=== PATIENT | female | born 1970 | race Caucasian/White ===

== ENCOUNTER → 2017-11-20 | Outpatient (CLI) | payer MEDICARE ==
[~2017-11-20] MED LIST: ALBU90OI61 INH; AMPDEX10CR PO; AZIT250 PO; Cleocin HCl150 MG PO; DULO60; FENT50TP TOP; OXYC15ER PO; PRED10 PO; QUET200 PO
== END ==
LOC: LAB EV 09:00
DX: L02.91 Cutaneous abscess, unspecified (principal)
CPT/HCPCS: 87070; 87077; 87147; 87186; 87205

== ENCOUNTER → 2018-03-07 | Outpatient (CLI) | payer MEDICARE | LOC: LAB SHORT 16:15 → LAB 16:15 | PROVIDERS: Nurse Practitioner | DX: Z01.419 Encounter for gynecological examination (general) (routine) without abnormal findings (principal) | CPT/HCPCS: G0145 ==

== ENCOUNTER 2020-07-01 08:44 | Emergency (ER) | payer MEDICARE ==
[~2020-07-01] VITALS: Ht 157.5 cm; Wt 95.2 kg
[2020-07-01] MEDS ORDERED: CEPH500 PO (10:15)
== END 2020-07-01 10:28 | disposition home or self-care (01) ==
LOC: ER 08:44
DX: L03.115 Cellulitis of right lower limb (principal); F17.200 Nicotine dependence, unspecified, uncomplicated; Z88.0 Allergy status to penicillin; Z88.2 Allergy status to sulfonamides; Z88.6 Allergy status to analgesic agent; Z88.5 Allergy status to narcotic agent; Z91.013 Allergy to seafood
CPT/HCPCS: 73610; 93971; 99284-25

== ENCOUNTER 2020-07-05 16:58 | Inpatient (IN) | payer MEDICARE ==
[~2020-07-05] VITALS: Ht 157.5 cm; Wt 101.3 kg
[~2020-07-05 16:58] MED LIST changes: +CEPH500 PO
[2020-07-05 17:49] LABS: BASOPHILS ABSOLUTE AUTO 0.04 K/mm3 (0.00-0.23); BASOPHILS PERCENT AUTO 0 % (0-2); EOSINOPHILS ABSOLUTE AUTO 0.11 K/mm3 (0.00-0.68); EOSINOPHILS PERCENT AUTO 1 % (0-6); Hematocrit 32.5 % (33.0-51.0); Hemoglobin 10.1 g/dL (11.5-16.0); IMMATURE GRAN ABSOLUTE AUTO 0.09 K/mm3 (0.00-0.10); IMMATURE GRAN PERCENT AUTO 1 % (0-1); LYMPHOCYTES ABSOLUTE AUTO 1.32 K/mm3 (0.84-5.20); LYMPHOCYTES PERCENT AUTO 9 % (21-46); MONOCYTES ABSOLUTE AUTO 1.04 K/mm3 (0.16-1.47); MONOCYTES PERCENT AUTO 7 % (4-13); Mean Corpuscular HGB 26.7 pg (26.0-34.0); Mean Corpuscular HGB Conc 31.1 g/dL (31.5-36.5); Mean Corpuscular Volume 86 fL (80-100); Mean Platelet Volume 12.1 fL (9.1-12.4); NEUTROPHILS ABSOLUTE AUTO 11.62 K/mm3 (1.96-9.15); NEUTROPHILS PERCENT AUTO 82 % (41-73); Platelet Count 305 K/mm3 (150-400); RDW Coefficient Variation 17.9 % (11.7-14.2); RDW Standard Deviation 56.8 fL (35.1-46.3); Red Blood Cell Count 3.78 M/mm3 (3.80-5.20); White Blood Cell Count 14.22 K/mm3 (4.00-11.30)
[2020-07-05 18:05] LABS: Alanine Aminotransfer (ALT/SGP 30 U/L (12-78); Albumin, Blood 1.9 g/dL (3.4-5.0); Albumin/Globulin Ratio 0.4 (0.8-1.8); Alk Phos 141 U/L (50-136); Anion Gap 11 mmol/L (6-16); Aspartate Aminotrans (AST/SGOT 33 U/L (12-37); Bilirubin, Total 0.3 mg/dL (0.1-1.0); Blood Urea Nitrogen 11 mg/dL (8-24); Bun/Creatinine Ratio 18.1 (12.0-20.0); CO2, Blood 28 mmol/L (21-32); Calcium, Blood 8.2 mg/dL (8.5-10.1); Chloride, Blood 102 mmol/L (98-108); Creatinine, Blood 0.61 mg/dL (0.40-1.00); Globulin, Blood 4.7 g/dL (2.2-4.0); Glomerular Filtration Rate >60 (60-); Glucose, Blood 102 mg/dL (70-99); International Normalized Ratio 0.94; Potassium, Blood 2.9 mmol/L (3.5-5.5); Prothrombin Time Results 10.1 Sec (9.7-11.5); Sodium, Blood 141 mmol/L (136-145); Total Protein, Blood 6.6 g/dL (6.4-8.2)
[2020-07-05] MEDS ORDERED: MONDOXYNE NL100 MG PO ×2 (19:51→19:54)
--- NOTE | 2020-07-06 04:55 | NUR ---
WELL SERVICES OPERATOR SUMMARY NEW ADMIT FROM THE ED LANIIGHT. PT ADMITTED WITH RLE CELLULITIS. R LEG IS RED AND SWOLLEN FROM KNEE DOWN TO FEET. RED AREA MARKED TO TRACK PROGRESS. PT REPORTS PAIN IN AREA ESPECIALLY WITH MOVEMENT OR IF AREA IS TOUCHED. MEDICATED X1 WITH OXYCODONE PER EMAR. PT RECIEVING IV VANCOMYCIN. PT HAS BEEN USING BEDPAN RLE IS TOO PAINFUL TO WALK AT THIS TIME. PT REPORTED HAVING LOW GRADE FEVER AT HOME BUT HAS BEEN AFEBRILE SINCE ARRIVING TO FLOOR. VSS, WILL CONTINUE TO MONITOR.
[2020-07-06 05:06] LABS: BASOPHILS ABSOLUTE AUTO 0.05 K/mm3 (0.00-0.23); BASOPHILS PERCENT AUTO 0 % (0-2); EOSINOPHILS ABSOLUTE AUTO 0.11 K/mm3 (0.00-0.68); EOSINOPHILS PERCENT AUTO 1 % (0-6); Hematocrit 29.2 % (33.0-51.0); Hemoglobin 9.1 g/dL (11.5-16.0); IMMATURE GRAN ABSOLUTE AUTO 0.11 K/mm3 (0.00-0.10); IMMATURE GRAN PERCENT AUTO 1 % (0-1); LYMPHOCYTES ABSOLUTE AUTO 1.23 K/mm3 (0.84-5.20); LYMPHOCYTES PERCENT AUTO 8 % (21-46); MONOCYTES ABSOLUTE AUTO 1.51 K/mm3 (0.16-1.47); MONOCYTES PERCENT AUTO 10 % (4-13); Mean Corpuscular HGB 26.5 pg (26.0-34.0); Mean Corpuscular HGB Conc 31.2 g/dL (31.5-36.5); Mean Corpuscular Volume 85 fL (80-100); Mean Platelet Volume 12.2 fL (9.1-12.4); NEUTROPHILS ABSOLUTE AUTO 12.39 K/mm3 (1.96-9.15); NEUTROPHILS PERCENT AUTO 81 % (41-73); Platelet Count 315 K/mm3 (150-400); RDW Standard Deviation 55.9 fL (35.1-46.3); Red Blood Cell Count 3.44 M/mm3 (3.80-5.20)
[2020-07-06 05:38] LABS: Alanine Aminotransfer (ALT/SGP 29 U/L (12-78); Albumin, Blood 1.6 g/dL (3.4-5.0); Albumin/Globulin Ratio 0.4 (0.8-1.8); Alk Phos 131 U/L (50-136); Anion Gap 8 mmol/L (6-16); Aspartate Aminotrans (AST/SGOT 34 U/L (12-37); Bilirubin, Total 0.4 mg/dL (0.1-1.0); Blood Urea Nitrogen 14 mg/dL (8-24); Bun/Creatinine Ratio 22.4 (12.0-20.0); CO2, Blood 27 mmol/L (21-32); Calcium, Blood 7.6 mg/dL (8.5-10.1); Chloride, Blood 104 mmol/L (98-108); Creatinine, Blood 0.63 mg/dL (0.40-1.00); Globulin, Blood 4.4 g/dL (2.2-4.0); Glomerular Filtration Rate >60 (60-); Glucose, Blood 98 mg/dL (70-99); Potassium, Blood 3.4 mmol/L (3.5-5.5); Sodium, Blood 139 mmol/L (136-145)
[2020-07-06 18:04] LABS: Vancomycin, Trough 18.5 ug/mL (5.0-10.0)
--- NOTE | 2020-07-06 18:20 | NUR ---
SHIFT SUMMARY PT WITH EPISODES OF SEVERE PAIN TO RLE. HAS KEPT ELEVATED ON PILLOWS FOR THE MOST PART TODAY. HAVE USED COOL APPLICATIONS FORM COMFORT THAT HAS EASED PAIN. ATTEMPTED TO STAND AT BEDSIDE THIS AFTERNOON. IT TOOK APPROX 5-7 MINUTES TO GET TO SIDE OF BED FAR ENOUGH TO THINK ABOUT STANDING DUE TO PAIN BUT INSISTED ON CONTINUING TO TRY. MANAGED TO STAND BUT UNABLE TO DO MORE THAN TAKE [address] BEFORE SHE COULDN'T HANDLE THE PAIN ANYMORE. ASSISTED BACK TO BED AND POSITIONED FOR COMFORT. AFTER SEVERAL MINUTES PAIN BEGAN TO SUBSIDE BUT STILL WAS SOBBING. WHEN PAIN WOULD GET HARD TO HANDLE SHE WOULD START TO SOB AND HAVE DIFFICULTY FOLLOWING DIRECTIONS OTHERWISE PAIN HAS BEEN MANAGEABLE WITH OXYCODONE. REDNESS NOTED MOSTLY TO ANTERIOR RLE WRAPPING AROUND TO MEDIAL AND BACK OF LEG.
--- NOTE | 2020-07-06 20:48 | NUR ---
ASSUMED CARE. AOX3, PAIN 4/10 RIGHT NOW IN LEG. SHE DOES CRY A LITTLE WHEN SHE MOVES HER LEG BUT DENIES ANY WANTING PAIN MEDS AT THIS TIME. SHE DOES WANT SOME SLEEPING AID TONIGHT. WILL CALL MD AND GET ORDER. REPORTS COOLING PAD IS NOT WORKING, IT WAS OUT OF WATER. FIXED IT. HELPED HER REPOSITION IN BED. DENIES ANY OTHER NEEDS AT THIS TIME. CALL LIGHT IN REACH.
[2020-07-07 04:37] LABS: Hematocrit 28.1 % (33.0-51.0); Hemoglobin 8.7 g/dL (11.5-16.0); Mean Corpuscular HGB 26.7 pg (26.0-34.0); Mean Corpuscular Volume 86 fL (80-100); Mean Platelet Volume 11.5 fL (9.1-12.4); Platelet Count 366 K/mm3 (150-400); RDW Coefficient Variation 18.2 % (11.7-14.2); RDW Standard Deviation 57.4 fL (35.1-46.3); Red Blood Cell Count 3.26 M/mm3 (3.80-5.20); White Blood Cell Count 15.79 K/mm3 (4.00-11.30)
[2020-07-07 04:54] LABS: Anion Gap 7 mmol/L (6-16); Blood Urea Nitrogen 9 mg/dL (8-24); CO2, Blood 27 mmol/L (21-32); Calcium, Blood 7.9 mg/dL (8.5-10.1); Chloride, Blood 105 mmol/L (98-108); Glomerular Filtration Rate >60 (60-); Glucose, Blood 100 mg/dL (70-99); Potassium, Blood 3.4 mmol/L (3.5-5.5); Sodium, Blood 139 mmol/L (136-145)
--- NOTE | 2020-07-07 05:11 | NUR ---
SHIFT SUMMARY: VS WNL, AFEBRILE. PAIN ON AVERAGE 5/10 MOSTLY TO THE POSTERIOR OF HER LEFT CALF. REDNESS TO THE LLE HAS DECREASED SIGNIFICANTLY ANTERIOR OF THE CALF BUT STILL PRESENT IN THE POSTERIOR. NO WEEPING IS NOTED, COOL COMPRESS THROUGHOUT THE NIGHT ALONG WITH ELEVATION. PAIN MEDICATION GIVEN X2. SPOKE TO MD REGARDING SLEEPING AID, MELATONIN ORDERED AND GIVEN. SLEPT BETWEEN INTERVENTIONS. CALL LIGHT REMAINED IN REACH.
--- NOTE | 2020-07-07 19:32 | NUR ---
Shift Summary A/Ox4, patient has been tearful x 1 regarding uncontrolled pain at start of shift, but it appears pain management has improved through the day. Medicated for 6-8/10 pain with moderate relief. In bed for most of the shift with R leg elevated and cold pad as tolerated. Bedbath done. CT-RLE completed, patient tolerated procedure well. No acute changes, will report to oncoming shift.
--- NOTE | 2020-07-07 19:40 | NUR ---
ASSUMED CARE. FRENCH REPORTS LEAKING FROM IV SITE. IV INFILTRATED. ASKED CHARGE NURSE TO PLACE ANOTHER IV. VANCO ON HOLD AT THIS TIME. REDNESS IN RLE HAS DECREASED MOSTLY TO THE POSTERIER OF THE LEG. ELEVATED ON PILLOWS. WILL ADMINISTER PAIN MEDS FOR PAIN. STATES IT HAS BEEN BETTER TODAY. SHE HAS NOT CRIED MUCH TODAY. DENIES ANY OTHER NEEDS. WILL CONTINUE TO MONITOR.
[2020-07-08 04:49] LABS: Hematocrit 25.8 % (33.0-51.0); Hemoglobin 7.9 g/dL (11.5-16.0); Mean Corpuscular HGB 26.3 pg (26.0-34.0); Mean Corpuscular HGB Conc 30.6 g/dL (31.5-36.5); Mean Corpuscular Volume 86 fL (80-100); Platelet Count 416 K/mm3 (150-400); RDW Coefficient Variation 18.3 % (11.7-14.2); RDW Standard Deviation 57.4 fL (35.1-46.3)
[2020-07-08 05:06] LABS: Anion Gap 6 mmol/L (6-16); Blood Urea Nitrogen 9 mg/dL (8-24); Bun/Creatinine Ratio 15.4 (12.0-20.0); CO2, Blood 27 mmol/L (21-32); Calcium, Blood 7.6 mg/dL (8.5-10.1); Chloride, Blood 105 mmol/L (98-108); Creatinine, Blood 0.59 mg/dL (0.40-1.00); Glomerular Filtration Rate >60 (60-); Glucose, Blood 101 mg/dL (70-99); Potassium, Blood 3.5 mmol/L (3.5-5.5); Sodium, Blood 138 mmol/L (136-145)
--- NOTE | 2020-07-08 06:18 | NUR ---
SHIFT SUMMARY: PATIENTS PAIN WAS BETTER CONTROLLED TONIGHT, SHE REMAINED CONSISTANT WITH PAIN MEDS EVERY 5 OR SO HOURS EVEN DURING THE NIGHT. RLE REDNESS CONTINUES TO DECREASE, STILL WARM TO THE TOUCH. MORE RED ON THE POSTERIOR SIDE. TENDER TO TOUCH, SWELLING STILL 3+. ELEVATES ON PILLOWS T/O THE NIGHT. USES BEDPAN FOR BATHROOM NEEDS, STATES TO PAINFUL TO GET UP. ENCOURAGED ROM EXERCISES WHILE IN BED. DISCUSSED PT TO START GETTING HER MOBILE SHE AGREED. SLEPT WELL T/O NIGHT. NEW IV PLACED IN LEFT FA. NO OTHER CHANGES TO REPORT.
--- NOTE | 2020-07-08 07:41 | NUR ---
ASSUMED CARE OF PT- BEDSIDE REPORT COMPLETED WITH NIGHT RN JUSTYN. PER REPORT PT HAS IMPROVED BUT IS STILL REFUSING TO MOVE, ATTEMPTED TO EDUCATE THE PT ABOUT THE NEED FOR MOBILITY, PT GOT A LITTLE SNAPY IN HER DEMENOR AND VERBAGE. SHE SEEMED IRRITATED THAT STAFF WOULD EVEN SUGGEST THAT SHE NOT KNOW THAT MOVING IS IMPORTANT, HOWEVER SHE HAS REFUSED TO EVEN SHIFT HER HIPS INDEPENDENTLY PER REPORT FROM THE NIGHT RN. SPOKE TO RT ABOUT THE NEED FOR INCENTIVE SPIROMETER IF THE PT IS STILL NOT MOBILIZING. WILL ENCOURAGE ACTIVITY TODAY, INCLUDING UP TO CHAIR FOR MEALS AND BSC FOR TOILETING. PT ALERT AND ORIENTED LAYING IN BED WITH HER RIGHT FOOT ELEVATED, CALL LIGHT IN REACH, NO S&S OF DISTRESS NOTED AT THE TIME OF REPORT.
[2020-07-08 09:02] LABS: Percent Saturation 11.2 % (15.0-50.0)
[2020-07-08 09:43] LABS: Vancomycin, Trough 24.2 ug/mL (5.0-10.0)
--- NOTE | 2020-07-08 09:59 | NUR ---
RECIEVED A CALL FROM LAB CRITICAL VANCO TROUGH CALLED PHARMACY AND SPOKE TO PHARMACIST, HOLD 1000 DOSE OF VANCO, DOSE WILL BE ADJUSTED.
--- NOTE | 2020-07-08 10:00 | NUR ---
CALLED DR SANCHEZ- PT C/O NAUSEA AND BELCHING ZOFRAN HELPED THE UPSET STOMACH BUT NOT THE "BURPING AND FARTING" THAT THE PT IS C/O. REQUESTED SIMETHICONE, ALSO REQUESTED PT/OT EVAL ORDER PT STATED SHE IS WILLING TO GET UP AND MOVE TODAY. NEW ORDER FOR PT/OT AND SIMETHICONE Q4. WILL ADMINISTER SOON VERIFIED IF PT IS STILL FEELING GASSY. CALLED PT THEY ARE AWARE OF THE ORDER AND WILL TRY TO SEE THE PT SOON.
--- NOTE | 2020-07-08 10:29 | NUR ---
ROUNDED ON THE PT AND SHE REQUESTED A LITTLE MORE PAIN MANAGEMENT PRIOR TO BIG ACTIVITIES SUCHA PT/OT. PER DR SANCHEZ PAIN MED CHANGED TO 5-10 MG Q4PRN
--- NOTE | 2020-07-08 12:22 | NUR ---
SPOKE TO PT AND OT ABOUT SEEING THE PT AROUND 1400. THE PT STATES SHE PLANS TO SIT IN A CHAIR AND USE THE BEDSIDE COMMODE LATER TODAY. SHE DOES NOT WANT A CATCH UP DOSE OF 5MG OXY THE ORDER WAS CHANGED 5-10MG, PT INSTEAD WANTS TO WAIT AND TAKE THE FULL 10MG DOSE WHEN AVAILABLE AT 1330 AND WORK WITH THERAPIES AT 1400. BOTH ARE AWARE OF THE PT WISHES.
--- NOTE | 2020-07-08 12:27 | NUR ---
CALLED PHARMACY- PT HAS A NICOTIENE PATCH ORDERED DAILY, BUT IT IS PRN. PT RECIEVED A PATCH AT 0900 (ESTIMATED TIME) ON THE AND AT 1830 ON THE . IT SEEMS THIS SHOULD BE A SCHEDULED MEDICATION SO THE PT CAN MAINTIAN SMOKING SESATION WITH MINIMAL NICOTIENE WITHDRAWLS WHILE HERE IN THE HOSPITAL. PHARMACIST AGREES ORDER TO BE CHANGED TO SCHEDULED DAILY.
[2020-07-09 06:11] LABS: Anion Gap 7 mmol/L (6-16); Blood Urea Nitrogen 8 mg/dL (8-24); CO2, Blood 27 mmol/L (21-32); Calcium, Blood 7.8 mg/dL (8.5-10.1); Chloride, Blood 106 mmol/L (98-108); Creatinine, Blood 0.62 mg/dL (0.40-1.00); Glomerular Filtration Rate >60 (60-); Glucose, Blood 95 mg/dL (70-99); Potassium, Blood 3.7 mmol/L (3.5-5.5); Sodium, Blood 140 mmol/L (136-145)
--- NOTE | 2020-07-09 07:00 | NUR ---
Patient gave student nurse Mark Vasquez permission to provide care.
[2020-07-09 13:14] LABS: Hematocrit 26.3 % (33.0-51.0); Mean Corpuscular HGB 26.6 pg (26.0-34.0); Mean Corpuscular HGB Conc 30.4 g/dL (31.5-36.5); Mean Corpuscular Volume 87 fL (80-100); Mean Platelet Volume 11.5 fL (9.1-12.4); Platelet Count 470 K/mm3 (150-400); RDW Coefficient Variation 18.4 % (11.7-14.2); RDW Standard Deviation 58.8 fL (35.1-46.3); Red Blood Cell Count 3.01 M/mm3 (3.80-5.20); White Blood Cell Count 7.12 K/mm3 (4.00-11.30)
--- NOTE | 2020-07-09 16:27 | NUR ---
PT PAIN MANAGEMENT- PT BEGAN SOBBING WHILE WORKING WITH OT EARLIER TODAY. SHE PERSISTED AND WALKED TO THE BATHROOM WITH OT. PT WAS MEDICATED WITH 10MG PO OXY PRIOR TO OT EVAL. PT STATED HER PAIN WAS WORSE AFTER BUT IT WAS TOLLERABLE. PT CALLED AT 1600 REQUESTING PAIN MEDICATION, EXPLAINED THAT THE OXY IS NOT AVAILABLE FOR ANOTHER 45 MINUTES AND SHE IS TAKING THE MAXIMUM DOSE IT CAN NOT BE GIVEN EARLY. PT WAS AGREEABLE BUT BEGAN SOBBING LOUDLY. SPOKE TO HER ABOUT THE USE OF TYLENOL FOR SOME TYPES OF PAIN AND SHE DECLINED, HOWEVER AFTER FURTHER INFORMATION ABOUT TYLENOL SHE AGREED TO TAKE A DOSE NOW TO TRY TO GET THE EDGE OFF OF HER PAIN PRIOR TO OXY BEING AVAILABLE. DISTRACTION SEEMS TO HELP HER PAIN QUITE A BIT MORE THAN OTHER FORMS OF PAIN RELIEF OTHER THAN THE OXYCODONE.
--- NOTE | 2020-07-09 18:09 | NUR ---
SHIFT SUMMARY- PT MUCH MORE PLEASENT AND PAIN SEEMS TO BE WELL MANAGED AT THIS TIME. TYLENOL HELPED THE PT HEADACHE AND SOME MINOR ACHES, OXY SEEMS TO HELP THE CELLULITIS PAIN IN THE RLE. REDNESS SEEMS TO HAVE IMPROVED. PT IS TRYING TO DO BED EXERCISES T/O THE DAY. PT STATED SHE WORKED WITH OT AND AFTER THAT SHE WAS DOING BED EXERCISES OFF AND ON. THEN SHE DRIFTED OFF TO SLEEP FOR AN HOUR AND A HALF AND WOKE WITH HORRIBLE PAIN, THAT IS WHEN SHE BEGAN SOBBING LOUDLY (SEE PREVIOUS NOTE FOR DETAILS). PLAN IS FOR PT TO DC HOME ONCE SHE IS ABLE. WILL PASS ALL OF THIS ON TO NIGHT RN IN REPORT.
[2020-07-10 05:16] LABS: Hemoglobin 8.3 g/dL (11.5-16.0); Mean Corpuscular HGB 26.7 pg (26.0-34.0); Mean Corpuscular HGB Conc 30.7 g/dL (31.5-36.5); Mean Corpuscular Volume 87 fL (80-100); Mean Platelet Volume 10.9 fL (9.1-12.4); Platelet Count 562 K/mm3 (150-400); RDW Coefficient Variation 18.5 % (11.7-14.2); RDW Standard Deviation 58.4 fL (35.1-46.3); Red Blood Cell Count 3.11 M/mm3 (3.80-5.20); White Blood Cell Count 8.42 K/mm3 (4.00-11.30)
--- NOTE | 2020-07-10 05:26 | NUR ---
CONSOLE MANAGER SUMMARY PT A&OX4, ABLE TO MAKE NEEDS KNOWN. PLEASANT AND COOPERATIVE TO CARE. MEDICATED FOR PAIN PER EMAR. USES A BEDPAN WITH ASSISTANCE FROM STAFF. EDEMA NOTED TO RLE. AA ELEVATED WITH PILLOWS. PER CHART, PT HAD NO RECORDED BM SINCE 07/04/20, OFFERRED PRN MOM, PT REFUSED, VERBALIZED THAT SHE FEELS THAT SHE DOES NOT NEED THE MEDICATION. PT EDUCATED OF RISK. VSS, CALL LIGHT WITHIN REACH, WILL CONT TO MONITOR PT. WILL REPORT TO ONCOMING RN.
[2020-07-10 05:50] LABS: Anion Gap 7 mmol/L (6-16); Blood Urea Nitrogen 8 mg/dL (8-24); Bun/Creatinine Ratio 12.8 (12.0-20.0); CO2, Blood 26 mmol/L (21-32); Chloride, Blood 107 mmol/L (98-108); Creatinine, Blood 0.62 mg/dL (0.40-1.00); Glomerular Filtration Rate >60 (60-); Glucose, Blood 86 mg/dL (70-99); Potassium, Blood 4.1 mmol/L (3.5-5.5); Sodium, Blood 140 mmol/L (136-145)
[2020-07-10] MEDS ORDERED: CLIN300 PO (11:26)
[2020-07-10] MEDS ORDERED: DOCU100 PO (11:27)
[2020-07-10] MEDS ORDERED: DULCOLAX400 MG/5 M PO (11:28)
[2020-07-10] MEDS ORDERED: FLUTICASONE-SA1 EAC1 INH (11:28)
[2020-07-10] MEDS ORDERED: NICO21TP TOP (11:29)
[2020-07-10] MEDS ORDERED: FERROUS SULFAT324 MG PO (11:31)
[2020-07-10] MEDS ORDERED: VISBIOME PROBIOTIC PO (11:35)
--- NOTE | 2020-07-10 13:38 | NUR ---
PT AWAKE DURING SHIFT REPORT, SITTING UP IN BED WATCHING TV. RLE ELEVATED ON PILLOWS D/T REDNESS AND SWELLING R/T CELLULITIS. PT A&O, CALLING FREQUENTLY FOR PAIN MEDICATION. TYLENOL GIVEN, PER PT REQUEST, FOR C/O PEÑA. PT REPORTED IT RESOLVED. PT THEN REQUESTED OXYCODONE FOR R LEG PAIN; GIVEN PER EMAR. DR SANCHEZ IN TO SEE PT. D/C ORDERS PLACED. PLANT HEALTH MANAGER IN TO ASSESS PT'S NEEDS FOR D/C. C/M ARRANGED AND DISCUSSED WITH PT. PT REPORTED THAT HER SON WAS COMING TO GET HER AND WOULD ASSIST HER TODAY. BSC AND FWW TO BE DELIVERED TO HOME FOR PT. D/C INSTRUCTIONS DISCUSSED WITH PT. F/U APPOINT, ARRANGED BY C/M. PT VERBALIZED UNDERSTANDING. PT ASSIST OUT TO SON'S CAR VIA W/C.
== END 2020-07-10 14:02 | disposition home or self-care (01) | DRG 872 ==
LOC: ER 16:58 → MEDS 19:41 → ENPENDDIS 07-06 14:32 → MEDS 07-10 14:02
PROVIDERS: Internal Medicine; Physician Assistant; ADMIT Internal Medicine
DX: A41.9 Sepsis, unspecified organism (principal); L03.115 Cellulitis of right lower limb; Z68.41 Body mass index [BMI] 40.0-44.9, adult; J45.909 Unspecified asthma, uncomplicated; E87.6 Hypokalemia; F17.210 Nicotine dependence, cigarettes, uncomplicated; D50.9 Iron deficiency anemia, unspecified; E66.9 Obesity, unspecified; Z88.2 Allergy status to sulfonamides; Z88.8 Allergy status to other drugs, medicaments and biological substances; Z88.0 Allergy status to penicillin; Z91.013 Allergy to seafood
CPT/HCPCS: 36415; 73701; 80048; 80053; 80202; 82728; 83540; 83550; 83605; 85025; 85027; 85610; 85730; 87040; 93005; 93010; 93971; 94640; 94760; 96365; 96366; 96375; 97162; 97165; 97530; 97535; 99284-25; A9270; J1650; J1885; J2916; J3370; J7050; J7120; Q9967

== ENCOUNTER 2020-07-11 13:55 | Emergency (ER) | payer MEDICARE ==
[~2020-07-11] VITALS: Ht 157.5 cm; Wt 95.2 kg
[~2020-07-11 13:55] MED LIST changes: +CLIN300 PO; +DOCU100 PO; +DULCOLAX400 MG/5 M PO; +FERROUS SULFAT324 MG PO; +FLUTICASONE-SA1 EAC1 INH; +MONDOXYNE NL100 MG PO; +NICO21TP TOP; +VISBIOME PROBIOTIC PO
[2020-07-11 15:58] LABS: BASOPHILS ABSOLUTE AUTO 0.04 K/mm3 (0.00-0.23); BASOPHILS PERCENT AUTO 0 % (0-2); EOSINOPHILS ABSOLUTE AUTO 0.09 K/mm3 (0.00-0.68); EOSINOPHILS PERCENT AUTO 1 % (0-6); Hematocrit 31.7 % (33.0-51.0); Hemoglobin 9.6 g/dL (11.5-16.0); IMMATURE GRAN ABSOLUTE AUTO 0.13 K/mm3 (0.00-0.10); IMMATURE GRAN PERCENT AUTO 1 % (0-1); LYMPHOCYTES ABSOLUTE AUTO 2.11 K/mm3 (0.84-5.20); LYMPHOCYTES PERCENT AUTO 17 % (21-46); MONOCYTES PERCENT AUTO 10 % (4-13); Mean Corpuscular HGB 26.9 pg (26.0-34.0); Mean Corpuscular HGB Conc 30.3 g/dL (31.5-36.5); Mean Corpuscular Volume 89 fL (80-100); Mean Platelet Volume 10.4 fL (9.1-12.4); NEUTROPHILS ABSOLUTE AUTO 8.84 K/mm3 (1.96-9.15); NEUTROPHILS PERCENT AUTO 71 % (41-73); Platelet Count 724 K/mm3 (150-400); RDW Coefficient Variation 19.1 % (11.7-14.2); RDW Standard Deviation 61.2 fL (35.1-46.3); Red Blood Cell Count 3.57 M/mm3 (3.80-5.20); White Blood Cell Count 12.41 K/mm3 (4.00-11.30)
[2020-07-11 16:28] LABS: Alanine Aminotransfer (ALT/SGP 28 U/L (12-78); Albumin, Blood 2.1 g/dL (3.4-5.0); Albumin/Globulin Ratio 0.4 (0.8-1.8); Alk Phos 117 U/L (50-136); Anion Gap 5 mmol/L (6-16); Aspartate Aminotrans (AST/SGOT 17 U/L (12-37); Bilirubin, Total 0.3 mg/dL (0.1-1.0); Blood Urea Nitrogen 9 mg/dL (8-24); Bun/Creatinine Ratio 13.1 (12.0-20.0); CO2, Blood 26 mmol/L (21-32); Calcium, Blood 8.2 mg/dL (8.5-10.1); Chloride, Blood 107 mmol/L (98-108); Creatinine, Blood 0.69 mg/dL (0.40-1.00); Globulin, Blood 5.5 g/dL (2.2-4.0); Glomerular Filtration Rate >60 (60-); Glucose, Blood 96 mg/dL (70-99); Potassium, Blood 4.3 mmol/L (3.5-5.5); Sodium, Blood 138 mmol/L (136-145); Total Protein, Blood 7.6 g/dL (6.4-8.2)
== END 2020-07-11 18:21 | disposition home or self-care (01) ==
LOC: ER 13:55
PROVIDERS: Physician Assistant
DX: L03.115 Cellulitis of right lower limb (principal); F90.9 Attention-deficit hyperactivity disorder, unspecified type; F17.200 Nicotine dependence, unspecified, uncomplicated; Z88.0 Allergy status to penicillin; Z88.2 Allergy status to sulfonamides; Z88.6 Allergy status to analgesic agent; Z88.5 Allergy status to narcotic agent; Z88.8 Allergy status to other drugs, medicaments and biological substances; Z91.013 Allergy to seafood; Z79.899 Other long term (current) drug therapy
CPT/HCPCS: 36415; 80053; 83605; 85025; 96365; 99284-25

== ENCOUNTER 2020-07-23 15:40 | Emergency (ER) | payer MEDICARE ==
[~2020-07-23] VITALS: Ht 157.5 cm; Wt 95.2 kg
[2020-07-23] MEDS ORDERED: ASPI81CH PO (16:21)
== END 2020-07-23 16:53 | disposition home or self-care (01) ==
LOC: ER 15:40
DX: L89.899 Pressure ulcer of other site, unspecified stage (principal); R60.0 Localized edema; F17.210 Nicotine dependence, cigarettes, uncomplicated; Z88.0 Allergy status to penicillin; Z88.2 Allergy status to sulfonamides; Z88.6 Allergy status to analgesic agent; Z88.5 Allergy status to narcotic agent; Z88.8 Allergy status to other drugs, medicaments and biological substances; Z91.013 Allergy to seafood
CPT/HCPCS: 99283

== ENCOUNTER 2020-08-03 11:03 | Day surgery (SDC) | payer MEDICARE ==
[~2020-08-03 11:03] MED LIST changes: +ASPI81CH PO
== END 2020-08-03 23:13 | disposition home or self-care (01) ==
LOC: WOUND 11:03
DX: L97.812 Non-pressure chronic ulcer of other part of right lower leg with fat layer exposed (principal); I73.9 Peripheral vascular disease, unspecified; J44.9 Chronic obstructive pulmonary disease, unspecified; I87.2 Venous insufficiency (chronic) (peripheral); Z88.8 Allergy status to other drugs, medicaments and biological substances; Z88.2 Allergy status to sulfonamides; Z88.5 Allergy status to narcotic agent; Z88.0 Allergy status to penicillin; Z88.1 Allergy status to other antibiotic agents; Z88.6 Allergy status to analgesic agent; Z79.899 Other long term (current) drug therapy
CPT/HCPCS: G0463

== ENCOUNTER 2020-08-07 11:09 | Day surgery (SDC) | payer MEDICARE | END 2020-08-07 23:00 | disposition home or self-care (01) | LOC: WOUND 11:09 | DX: I96 Gangrene, not elsewhere classified (principal); L97.812 Non-pressure chronic ulcer of other part of right lower leg with fat layer exposed; J44.9 Chronic obstructive pulmonary disease, unspecified; D64.9 Anemia, unspecified; G62.9 Polyneuropathy, unspecified; I87.2 Venous insufficiency (chronic) (peripheral); M48.00 Spinal stenosis, site unspecified; Z88.0 Allergy status to penicillin; Z88.2 Allergy status to sulfonamides; Z88.5 Allergy status to narcotic agent; Z88.6 Allergy status to analgesic agent; Z91.013 Allergy to seafood; Z79.82 Long term (current) use of aspirin; Z79.51 Long term (current) use of inhaled steroids; Z79.899 Other long term (current) drug therapy ==

== ENCOUNTER 2020-08-17 01:29 | Day surgery (SDC) | payer MEDICARE ==
[~2020-08-17 01:29] MED LIST changes: -ASPI81CH PO; +Aspir 8181 MG PO; -FERROUS SULFAT324 MG PO
[2020-08-17] MEDS ORDERED: FERROUS SULFAT324 MG PO (21:27)
[2020-08-17] MEDS ORDERED: MULVITA PO (21:27)
== END 2020-08-17 22:58 | disposition home or self-care (01) ==
LOC: WOUND 01:29
DX: L97.812 Non-pressure chronic ulcer of other part of right lower leg with fat layer exposed (principal); I73.9 Peripheral vascular disease, unspecified; I87.2 Venous insufficiency (chronic) (peripheral); Z79.899 Other long term (current) drug therapy
CPT/HCPCS: G0463

== ENCOUNTER 2020-08-17 13:34 | Emergency (ER) | payer MEDICARE ==
[~2020-08-17] VITALS: Ht 157.5 cm; Wt 96.2 kg
[2020-08-17 14:35] LABS: Hematocrit 37.4 % (33.0-51.0); Hemoglobin 11.3 g/dL (11.5-16.0); Mean Corpuscular HGB 27.3 pg (26.0-34.0); Mean Corpuscular HGB Conc 30.2 g/dL (31.5-36.5); Mean Corpuscular Volume 90 fL (80-100); Mean Platelet Volume 10.9 fL (9.1-12.4); Platelet Count 405 K/mm3 (150-400); RDW Coefficient Variation 18.6 % (11.7-14.2); RDW Standard Deviation 61.8 fL (35.1-46.3); Red Blood Cell Count 4.14 M/mm3 (3.80-5.20); White Blood Cell Count 11.18 K/mm3 (4.00-11.30)
[2020-08-17 15:00] LABS: BAND PERCENT MAN 1 % (0-8); BASOPHILS PERCENT MAN 0 % (0-2); EOSINOPHILS ABSOLUTE MAN 0.22 K/mm3 (0.00-0.68); EOSINOPHILS PERCENT MAN 2 % (0-6); LYMPHOCYTES ABSOLUTE MAN 3.46 K/mm3 (0.84-5.20); LYMPHOCYTES PERCENT MAN 31 % (21-46); MONOCYTES PERCENT MAN 9 % (4-13); NEUTROPHILS ABSOLUTE MAN 6.48 K/mm3 (1.96-9.15); SEG NEUTROPHILS PERCENT MAN 57 % (41-73); TOTAL CELLS COUNTED 100
[2020-08-17 15:40] LABS: Alanine Aminotransfer (ALT/SGP 18 U/L (12-78); Albumin, Blood 2.7 g/dL (3.4-5.0); Albumin/Globulin Ratio 0.5 (0.8-1.8); Alk Phos 82 U/L (50-136); Anion Gap 6 mmol/L (6-16); Aspartate Aminotrans (AST/SGOT 39 U/L (12-37); Bilirubin, Total 0.3 mg/dL (0.1-1.0); Blood Urea Nitrogen 7 mg/dL (8-24); Bun/Creatinine Ratio 10.8 (12.0-20.0); CO2, Blood 25 mmol/L (21-32); Calcium, Blood 8.4 mg/dL (8.5-10.1); Chloride, Blood 108 mmol/L (98-108); Creatinine, Blood 0.65 mg/dL (0.40-1.00); Globulin, Blood 5.2 g/dL (2.2-4.0); Glomerular Filtration Rate >60 (60-); Glucose, Blood 79 mg/dL (70-99); Potassium, Blood 5.4 mmol/L (3.5-5.5); Sodium, Blood 139 mmol/L (136-145); Total Protein, Blood 7.9 g/dL (6.4-8.2)
--- NOTE | 2020-08-17 21:24 | NUR ---
REVIEWED PT'S INFO FOR CURRENT ADMISSION
[2020-08-17] MEDS ORDERED: MULVITA PO (21:27)
[2020-08-17] MEDS ORDERED: FERROUS SULFAT324 MG PO (21:27)
== END 2020-08-17 15:53 | disposition left against medical advice (07) ==
LOC: ER 13:34
PROVIDERS: Emergency Medicine
DX: Z53.21 Procedure and treatment not carried out due to patient leaving prior to being seen by health care provider (principal)
CPT/HCPCS: 80053; 85025

== ENCOUNTER 2020-08-17 19:26 | Inpatient (IN) | payer MEDICARE ==
[~2020-08-17] VITALS: Ht 160 cm; Wt 94.3 kg
[2020-08-17] MEDS ORDERED: FERROUS SULFAT324 MG PO (21:27)
[2020-08-17] MEDS ORDERED: MULVITA PO (21:27)
--- NOTE | 2020-08-17 22:15 | NUR ---
transfer report from MOBILE DEVELOPER Luba on PT with venous stasis ulcer nonhealing who has been seeing wound clinic & has has taken multiple oral antibiotics to treat. Wound culture results pending but recently had enterbacter clkoacae & prevotella bivia grow in 07/21/20 abscess culture hx of MRSA 2018. Will be on contact iso, recieved IV abx in ER. Await admission.
[2020-08-18 05:10] LABS: Hematocrit 31.5 % (33.0-51.0); Hemoglobin 9.5 g/dL (11.5-16.0); Mean Corpuscular HGB 27.2 pg (26.0-34.0); Mean Corpuscular HGB Conc 30.2 g/dL (31.5-36.5); Mean Corpuscular Volume 90 fL (80-100); Mean Platelet Volume 10.7 fL (9.1-12.4); Platelet Count 349 K/mm3 (150-400); RDW Coefficient Variation 18.5 % (11.7-14.2); RDW Standard Deviation 61.9 fL (35.1-46.3); Red Blood Cell Count 3.49 M/mm3 (3.80-5.20); White Blood Cell Count 8.19 K/mm3 (4.00-11.30)
[2020-08-18 05:33] LABS: Alanine Aminotransfer (ALT/SGP 12 U/L (12-78); Albumin, Blood 2.3 g/dL (3.4-5.0); Albumin/Globulin Ratio 0.5 (0.8-1.8); Alk Phos 69 U/L (50-136); Anion Gap 4 mmol/L (6-16); Aspartate Aminotrans (AST/SGOT 10 U/L (12-37); BAND PERCENT MAN 1 % (0-8); BASOPHILS PERCENT MAN 0 % (0-2); Bilirubin, Total 0.3 mg/dL (0.1-1.0); Blood Urea Nitrogen 8 mg/dL (8-24); Bun/Creatinine Ratio 10.7 (12.0-20.0); CO2, Blood 27 mmol/L (21-32); Calcium, Blood 8.3 mg/dL (8.5-10.1); Chloride, Blood 110 mmol/L (98-108); Creatinine, Blood 0.75 mg/dL (0.40-1.00); EOSINOPHILS ABSOLUTE MAN 0.24 K/mm3 (0.00-0.68); EOSINOPHILS PERCENT MAN 3 % (0-6); Globulin, Blood 4.2 g/dL (2.2-4.0); Glomerular Filtration Rate >60 (60-); Glucose, Blood 99 mg/dL (70-99); LYMPHOCYTES ABSOLUTE MAN 2.53 K/mm3 (0.84-5.20); LYMPHOCYTES PERCENT MAN 31 % (21-46); MONOCYTES ABSOLUTE MAN 0.65 K/mm3 (0.16-1.47); MONOCYTES PERCENT MAN 8 % (4-13); NEUTROPHILS ABSOLUTE MAN 4.75 K/mm3 (1.96-9.15); Potassium, Blood 3.9 mmol/L (3.5-5.5); SEG NEUTROPHILS PERCENT MAN 57 % (41-73); Sodium, Blood 141 mmol/L (136-145); TOTAL CELLS COUNTED 100; Total Protein, Blood 6.5 g/dL (6.4-8.2)
--- NOTE | 2020-08-18 14:51 | NUR ---
PT TO SURGERY
[2020-08-18 15:03] LABS: Influenza A, PCR Negative (NEGATIVE); Influenza B, PCR Negative (NEGATIVE); Resp Syncytial Virus, PCR Negative (NEGATIVE); SARS-Cov-2 (COVID-19) PCR, MMC Negative (NEGATIVE)
--- NOTE | 2020-08-18 17:11 | NUR ---
SUMMARY PT AT SURGERY NOW, PT HAS BEEN ALERT AND ORIENTED, DRAMATICALLY EMOTIONAL T/O THE DAY, CRYING FREQUENTLY, HIGH ANXIETY, PT MED PER EMAR FOR PAIN AND ANXIETY ORDERED, PT HAD REMAINED NPO T/O THE DAY FOR SURGERY, PT UP TO TAKE A WALK ONCE TODAY, VSS, WILL CONT TO MONITOR
--- NOTE | 2020-08-18 20:04 | NUR ---
DR Haynes who performed surgery on rt LE wound had extensive area debrided & wound vac placed. Wound vac patent draining serosang fliud small amts. PT has elieser wrap & postop dressing rt LE upper thigh to foot with toes exposed. unable to get in PT keeper to enter postop orders. Asked to have same antibiotics & IV orders WBAT & wound vac orders. Ordered CBC for AM & WBAT. Post op dressing CDI, medicated PT for pain of 8/10. She is weepy has ativan 1 mg available at HS TID PRN.
--- NOTE | 2020-08-18 23:04 | NUR ---
post op RT LE wound vac placement after extensive I & D rt thighanterior posterior. Wound vac patent drains sm amt of serosang drainage. RT le with toes exposed postop dressing from above knee. Medicated with oxy 10 for rt thigh pain with helpful effect. PT very anxious demanding to be unhooked from IV so she could leave floor to smoke. Minimal safety awareness, noncompliant with use of nicotine patch & no smoking rules. PT insisted on leaving floor was going to drag wound vac & cane & ambulate long distance. Does not redirect. Provided WC to transport PT & wound vac to smoking area which is in violation of our policy to prevent injury to fresh postop PT. Surgeon had said she had 9 inch wound that tunneled fron of RT thigh out back of rt thigh. Medicated for anxiety when PT ready for bed. Continues in isolation for wound drainage rule out CDIFF. No stool yet, tolerating diet & activity, up to BSC with 1 assist.
[2020-08-19 01:14] LABS: BASOPHILS ABSOLUTE AUTO 0.03 K/mm3 (0.00-0.23); BASOPHILS PERCENT AUTO 0 % (0-2); EOSINOPHILS ABSOLUTE AUTO 0.01 K/mm3 (0.00-0.68); EOSINOPHILS PERCENT AUTO 0 % (0-6); Hematocrit 28.5 % (33.0-51.0); Hemoglobin 8.5 g/dL (11.5-16.0); IMMATURE GRAN ABSOLUTE AUTO 0.03 K/mm3 (0.00-0.10); IMMATURE GRAN PERCENT AUTO 0 % (0-1); LYMPHOCYTES ABSOLUTE AUTO 1.21 K/mm3 (0.84-5.20); LYMPHOCYTES PERCENT AUTO 15 % (21-46); MONOCYTES ABSOLUTE AUTO 0.42 K/mm3 (0.16-1.47); MONOCYTES PERCENT AUTO 5 % (4-13); Mean Corpuscular HGB 27.1 pg (26.0-34.0); Mean Corpuscular HGB Conc 29.8 g/dL (31.5-36.5); Mean Corpuscular Volume 91 fL (80-100); Mean Platelet Volume 10.8 fL (9.1-12.4); NEUTROPHILS ABSOLUTE AUTO 6.49 K/mm3 (1.96-9.15); NEUTROPHILS PERCENT AUTO 79 % (41-73); Platelet Count 384 K/mm3 (150-400); RDW Coefficient Variation 18.3 % (11.7-14.2); RDW Standard Deviation 61.1 fL (35.1-46.3); Red Blood Cell Count 3.14 M/mm3 (3.80-5.20); White Blood Cell Count 8.19 K/mm3 (4.00-11.30)
[2020-08-19 01:30] LABS: Vancomycin, Trough 13.9 ug/mL (5.0-10.0)
[2020-08-19 01:31] LABS: Albumin, Blood 2.2 g/dL (3.4-5.0); Anion Gap 3 mmol/L (6-16); Blood Urea Nitrogen 10 mg/dL (8-24); Bun/Creatinine Ratio 13.7 (12.0-20.0); CO2, Blood 28 mmol/L (21-32); Calcium, Blood 8.1 mg/dL (8.5-10.1); Chloride, Blood 110 mmol/L (98-108); Creatinine, Blood 0.73 mg/dL (0.40-1.00); Glomerular Filtration Rate >60 (60-); Glucose, Blood 117 mg/dL (70-99); Potassium, Blood 4.6 mmol/L (3.5-5.5); Sodium, Blood 141 mmol/L (136-145)
--- NOTE | 2020-08-19 02:09 | NUR ---
PT continues to ignore unit policy of no smoking continued to reinforce. Post op teaching with precautions for wound vac & iv lines safety continued.
--- NOTE | 2020-08-19 19:48 | NUR ---
cn started pg due to difficulty starting and maintaining iv, with current abx, pt up frequently to smoke, compliant when medicated, rm air, saline locked, bed in low position, call light in reach and used appropriatly, bsr shared with noc nurse and pt
--- NOTE | 2020-08-20 04:51 | NUR ---
PERFORMANCE REPORTER SUMMARY PT A&OX4, ABLE TO MAKE NEEDS KNOWN, COOPERATIVE TO CARE. MEDICATED FOR PAIN AND ANXIETY PER EMAR. PT UP AND OUT FREQ TO SMOKE. IV MAXIPIME AND VANCO ADMINISTERED ORDERED, NO ASE NOTED. PT NO C/O CP, SOB, OR N&V. NO ISSUES NOTED TO WOUND VAC THIS SHIFT, DRESSING CDI TO AA. BED AT LOWEST POSITION, CALL LIGHT WITHIN REACH.
--- NOTE | 2020-08-20 07:41 | NUR ---
SHIFT REPORT RECEIVED, pt very anxious r/being awakened, medicated and pt insisted on going for a walk, discussed danger and possible repircussions, pt choose to leave, rm air, flushed IV, wound vac working as expected, dressing cdi, will restart abx when pt returns
--- NOTE | 2020-08-20 15:22 | NUR ---
08/20/20 Laura Guevara VERIFICATIONS: EDIT CHART.
--- NOTE | 2020-08-20 19:11 | NUR ---
PT powerglide is infiltrated, flushed with no difficulty or swelling, left medication with noc nurse who agreed to discuss powerglide with pt and either start a new iv or run the abx, medicated as prescribed, call light in reach, rm air
--- NOTE | 2020-08-21 03:50 | NUR ---
SUMMARY PT HAS C/O PAIN AND ANXIETY. PT HAS CRIED FREQUENTLY T/O SHIFT. PT WOULD CALL FOR PAIN MEDS AND GO OUT TO SMOKE BEFORE GETTING MEDS. PT PIN TX PER EMAR. PT HAD SOME RELIEF. PT IS CURRENTLY SLEEPING IN NO DISTRESS. CALL LIGHT IN REACH.
[2020-08-21 13:12] LABS: Creatinine, Blood 0.74 mg/dL (0.40-1.00)
[2020-08-21 13:22] LABS: Vancomycin, Trough 22.2 ug/mL (5.0-10.0)
--- NOTE | 2020-08-21 19:20 | NUR ---
SHIFT SUMMARY FRENCH COMPLAINED OF PAIN AND ANXIETY AND WAS TREATED PER EMAR. JOSE VISITED, STATED THAT PT SHOULD HAVE DRESSING/VAC CHANGED TOMORROW BY NURSING STAFF AND THEN BACK TO // WOUND VAC CHANGE SCHEDULE. POWERGLIDE CAUSES HER SOME SORENESS, MADE BETTER BY PRESSURE, FLUSHING WELL. INDEP IN ROOM, LEFT ROOM TO SMOKE SEVERAL TIMES. CONTINENT IN BSC. TOOK MEDS PRESCRIBED, CALL LIGHT IN REACH
--- NOTE | 2020-08-21 21:36 | NUR ---
50 Y/O FEMALE UP OUT TO SMOKE TWICE THIS SHIFT SINCE THIS NURSE ARRIVED BY PUSHING WHEELCHAIR OUTSIDE WHILE LEANING ON IT; PT NOTED HAVE HIGH ANXIETY AT TIMES DURING ASSESSMENT; PT ENCOURAGED TO ELEVATE RIGHT LEG ON PILLOW WHILE WOUND VAC IS SUCTIONING CONTINUOUSLY AT 125HG/HR (SITE COVERED WITH THELMA WRAP DRESSING).
--- NOTE | 2020-08-22 04:01 | NUR ---
SHIFT SUMMARY: 50 Y/O OBESE FEMALE HAD RESTLESS NIGHT AT TIMES WITH C/O RLE PAIN RATED 8/10 WITH ROXICODONE 10MG PO GIVEN X 2 AND FENTANYL 50MCG IVP X 1 WITH ADEQUATE RELIEF; PT WAS NOTED TO GO OUTSIDE SMOKING X 3 TIMES THIS SHIFT WHILE PUSHING WHEELCHAIR AND BEARING WEIGHT RLE; PTS RLE WOUND VAC AT CONTINUOUS SUCTION 125MM/HG COVERED WITH THELMA WRAP DRESSING; PT NOTED BY VERY ANXIOUS AT TIMES AND VOICED SHE SHALOM BY CRYING AT TIMES; PT WAS GIVEN ATIVAN 1MG PO X 1 THIS SHIFT; BED LOW POSITION WITH CALL LIGHT AT SIDE; ALERT AND ORIENTED X 4.
[2020-08-22 04:48] LABS: BASOPHILS ABSOLUTE AUTO 0.04 K/mm3 (0.00-0.23); BASOPHILS PERCENT AUTO 1 % (0-2); EOSINOPHILS ABSOLUTE AUTO 0.17 K/mm3 (0.00-0.68); EOSINOPHILS PERCENT AUTO 3 % (0-6); Hematocrit 25.1 % (33.0-51.0); Hemoglobin 7.4 g/dL (11.5-16.0); IMMATURE GRAN ABSOLUTE AUTO 0.02 K/mm3 (0.00-0.10); IMMATURE GRAN PERCENT AUTO 0 % (0-1); LYMPHOCYTES ABSOLUTE AUTO 2.23 K/mm3 (0.84-5.20); LYMPHOCYTES PERCENT AUTO 37 % (21-46); MONOCYTES ABSOLUTE AUTO 0.62 K/mm3 (0.16-1.47); MONOCYTES PERCENT AUTO 10 % (4-13); Mean Corpuscular HGB 26.9 pg (26.0-34.0); Mean Corpuscular HGB Conc 29.5 g/dL (31.5-36.5); Mean Corpuscular Volume 91 fL (80-100); Mean Platelet Volume 10.2 fL (9.1-12.4); NEUTROPHILS ABSOLUTE AUTO 2.94 K/mm3 (1.96-9.15); NEUTROPHILS PERCENT AUTO 49 % (41-73); Platelet Count 387 K/mm3 (150-400); RDW Coefficient Variation 18.5 % (11.7-14.2); RDW Standard Deviation 62.1 fL (35.1-46.3); Red Blood Cell Count 2.75 M/mm3 (3.80-5.20); White Blood Cell Count 6.02 K/mm3 (4.00-11.30)
--- NOTE | 2020-08-22 17:56 | NUR ---
SHIFT SUMMARY PATIENT ALERT AND ORIENTED THROUGHOUT THIS SHIFT. PATIENT MEDICATED FOR PAIN AND ANXIETY THROUGHOUT THIS SHIFT. PATIENT CRYING FREQUENTLY THROUGHOUT THIS SHIFT. PATIENT STATES SHE DOESN'T KNOW WHY SHE IS CRYING. PATIENT FREQUENTLY WALKS DOWNSTAIRS TO SMOKE CIGARETTES. PATIENT'S SON IN THE ROOM THIS AFTERNOON. WOUND VAC CHANGED THIS AFTERNOON WITH SON IN THE ROOM PER REQUEST. PATIENT CURRENTLY SITTING UP IN BED WATCHING TELEVISION.
--- NOTE | 2020-08-22 19:27 | NUR ---
WATCHING TV, AFFECT FLAT. CALL LIGHT IN REACH. DENIES PAIN AT THIS TIME. ISOLATION PRECAUTIONS MAINTAINED
[2020-08-23 04:44] LABS: BASOPHILS ABSOLUTE AUTO 0.03 K/mm3 (0.00-0.23); BASOPHILS PERCENT AUTO 1 % (0-2); EOSINOPHILS ABSOLUTE AUTO 0.18 K/mm3 (0.00-0.68); EOSINOPHILS PERCENT AUTO 3 % (0-6); Hematocrit 24.7 % (33.0-51.0); Hemoglobin 7.4 g/dL (11.5-16.0); IMMATURE GRAN ABSOLUTE AUTO 0.02 K/mm3 (0.00-0.10); IMMATURE GRAN PERCENT AUTO 0 % (0-1); LYMPHOCYTES ABSOLUTE AUTO 2.28 K/mm3 (0.84-5.20); LYMPHOCYTES PERCENT AUTO 40 % (21-46); MONOCYTES ABSOLUTE AUTO 0.56 K/mm3 (0.16-1.47); MONOCYTES PERCENT AUTO 10 % (4-13); Mean Corpuscular HGB 27.2 pg (26.0-34.0); Mean Corpuscular Volume 91 fL (80-100); Mean Platelet Volume 10.4 fL (9.1-12.4); NEUTROPHILS ABSOLUTE AUTO 2.68 K/mm3 (1.96-9.15); NEUTROPHILS PERCENT AUTO 47 % (41-73); Platelet Count 350 K/mm3 (150-400); RDW Coefficient Variation 18.7 % (11.7-14.2); RDW Standard Deviation 61.5 fL (35.1-46.3); Red Blood Cell Count 2.72 M/mm3 (3.80-5.20); White Blood Cell Count 5.75 K/mm3 (4.00-11.30)
[2020-08-23 04:59] LABS: Anion Gap 6 mmol/L (6-16); Blood Urea Nitrogen 10 mg/dL (8-24); Bun/Creatinine Ratio 13.3 (12.0-20.0); CO2, Blood 27 mmol/L (21-32); Calcium, Blood 8.6 mg/dL (8.5-10.1); Chloride, Blood 110 mmol/L (98-108); Creatinine, Blood 0.75 mg/dL (0.40-1.00); Glomerular Filtration Rate >60 (60-); Glucose, Blood 98 mg/dL (70-99); Potassium, Blood 4.1 mmol/L (3.5-5.5); Sodium, Blood 143 mmol/L (136-145)
--- NOTE | 2020-08-23 05:37 | NUR ---
SHIFT SUMMARY AWAKE AT INTRVALS REQUESTING ANALGESICS FOR LOWER EXT PAIN. WOUND VAC OF RIGHT CALF DRAINING. CALL LIGHT IN REACH
[2020-08-23 09:16] LABS: Anion Gap 8 mmol/L (6-16); Blood Urea Nitrogen 10 mg/dL (8-24); Bun/Creatinine Ratio 14.3 (12.0-20.0); CO2, Blood 23 mmol/L (21-32); Calcium, Blood 8.7 mg/dL (8.5-10.1); Chloride, Blood 108 mmol/L (98-108); Glomerular Filtration Rate >60 (60-); Glucose, Blood 102 mg/dL (70-99); Potassium, Blood 4.2 mmol/L (3.5-5.5); Sodium, Blood 139 mmol/L (136-145)
--- NOTE | 2020-08-23 18:13 | NUR ---
SHIFT SUMMARY PATIENT ALERT AND ORIENTED THROUGHOUT THIS SHIFT. PATIENT EMOTIONAL THIS AM, THEN HAS REMAINED CALM THROUGH THE REMAINEDER OF THE SHIFT. PATIENT MEDICATED FOR PAIN AND ANXIETY THROUGHOUT THIS SHIFT. MEETENT REMAINS ON MULTIPLE IV ANTIBIOTICS. PATIENT CONTINUES TO WALK OUTSIDE TO SMOKE CIGARETTES. PATIENT NAPPED MUCH OF THE AFTERNOON. PATIENT CURRENTLY ON A WALK OUTSIDE.
--- NOTE | 2020-08-23 19:33 | NUR ---
AWAKE. DISCUSSED PAIN MGT WITH OFF GOING RN AND ON COMING RN. AFFECT CHEERFUL. ISOLATION PRECAUTIONS MAINTAINED. CALL LIGHT IN REACH
--- NOTE | 2020-08-24 03:46 | NUR ---
SHIFT SUMMARY HAS BEEN RESTING QUIETLY WITH EFW INTERRUPTIONS THIS SHIFT. SAID INTERRUPTIONS INCLUDED ASKING FOR PAIN MEDS FOR RIGHT LEG PAIN AND ONE TIME FOR ATIVAN FOR ANXIETY. CURRENTLY RESTING WITHOUT S/S ACUTE DISTRESS. WOUND VAC DRAINING. CALL LIGHT IN REACH.
[2020-08-24 05:35] LABS: BASOPHILS ABSOLUTE AUTO 0.04 K/mm3 (0.00-0.23); BASOPHILS PERCENT AUTO 1 % (0-2); EOSINOPHILS ABSOLUTE AUTO 0.18 K/mm3 (0.00-0.68); EOSINOPHILS PERCENT AUTO 3 % (0-6); Hematocrit 25.3 % (33.0-51.0); Hemoglobin 7.6 g/dL (11.5-16.0); IMMATURE GRAN ABSOLUTE AUTO 0.01 K/mm3 (0.00-0.10); IMMATURE GRAN PERCENT AUTO 0 % (0-1); LYMPHOCYTES ABSOLUTE AUTO 2.26 K/mm3 (0.84-5.20); LYMPHOCYTES PERCENT AUTO 41 % (21-46); MONOCYTES ABSOLUTE AUTO 0.57 K/mm3 (0.16-1.47); MONOCYTES PERCENT AUTO 10 % (4-13); Mean Corpuscular HGB 27.5 pg (26.0-34.0); Mean Corpuscular Volume 92 fL (80-100); Mean Platelet Volume 11.1 fL (9.1-12.4); NEUTROPHILS ABSOLUTE AUTO 2.46 K/mm3 (1.96-9.15); NEUTROPHILS PERCENT AUTO 45 % (41-73); Platelet Count 371 K/mm3 (150-400); RDW Coefficient Variation 18.6 % (11.7-14.2); RDW Standard Deviation 62.2 fL (35.1-46.3); Red Blood Cell Count 2.76 M/mm3 (3.80-5.20); White Blood Cell Count 5.52 K/mm3 (4.00-11.30)
[2020-08-24 06:09] LABS: Anion Gap 8 mmol/L (6-16); Blood Urea Nitrogen 12 mg/dL (8-24); Bun/Creatinine Ratio 15.2 (12.0-20.0); CO2, Blood 25 mmol/L (21-32); Calcium, Blood 8.4 mg/dL (8.5-10.1); Chloride, Blood 110 mmol/L (98-108); Creatinine, Blood 0.79 mg/dL (0.40-1.00); Glomerular Filtration Rate >60 (60-); Glucose, Blood 92 mg/dL (70-99); Sodium, Blood 143 mmol/L (136-145)
--- NOTE | 2020-08-24 22:04 | NUR ---
AWAKE AT INTERVALS. RECEIVED ANALGESIC EARLIER AND IS NOW RESTING QUIETLY. HOB ELEVATED AT 45 DEGREES. WOUND VAC DRAINING. ISOLATION PRECAUTIONS MAINTAINED. CALL LIGHT IN REACH
--- NOTE | 2020-08-25 04:39 | NUR ---
SHIFT SUMMARY RESTING QUIETLY MOST OF SHIFT, AWAKENED EARLIER, VOICED FRUSTRATIONS AND WENT OUTSIDE TO SMOKE. BACK AND RECEIVED ATIVAN. RESTING QUIETLY WITHOUT NOTED AGITATION AT THIS TIME. ISOLATION PRECAUTIONS MAINTAINED. CALL LIGHT IN REACH
[2020-08-25 05:11] LABS: BASOPHILS ABSOLUTE AUTO 0.03 K/mm3 (0.00-0.23); BASOPHILS PERCENT AUTO 1 % (0-2); EOSINOPHILS ABSOLUTE AUTO 0.14 K/mm3 (0.00-0.68); EOSINOPHILS PERCENT AUTO 3 % (0-6); Hematocrit 26.7 % (33.0-51.0); Hemoglobin 7.9 g/dL (11.5-16.0); IMMATURE GRAN ABSOLUTE AUTO 0.01 K/mm3 (0.00-0.10); IMMATURE GRAN PERCENT AUTO 0 % (0-1); LYMPHOCYTES ABSOLUTE AUTO 2.24 K/mm3 (0.84-5.20); LYMPHOCYTES PERCENT AUTO 41 % (21-46); MONOCYTES PERCENT AUTO 9 % (4-13); Mean Corpuscular HGB Conc 29.6 g/dL (31.5-36.5); Mean Corpuscular Volume 91 fL (80-100); NEUTROPHILS ABSOLUTE AUTO 2.52 K/mm3 (1.96-9.15); NEUTROPHILS PERCENT AUTO 46 % (41-73); Platelet Count 405 K/mm3 (150-400); RDW Coefficient Variation 18.5 % (11.7-14.2); RDW Standard Deviation 61.5 fL (35.1-46.3); Red Blood Cell Count 2.93 M/mm3 (3.80-5.20); White Blood Cell Count 5.44 K/mm3 (4.00-11.30)
--- NOTE | 2020-08-25 10:16 | NUR ---
CALLED DR. GARCIA'S OFFICE TO COORDINATE WOUND VAC ORDERS. LEFT MESSAGE FOR OFFCE TO CONTACT MEDICAL FLOOR.
--- NOTE | 2020-08-25 11:04 | NUR ---
SPOKE WITH RYAN AT JOSE'S OFFICE, WHO STATES TO GO AHEAD AND FAX OVER WOUND VAC ORDERS FOR SIGNING. FAXED AT THIS TIME.
[2020-08-25] MEDS ORDERED: ACET325 PO (17:28)
[2020-08-25] MEDS ORDERED: LEVO750 IV (17:29)
[2020-08-25] MEDS ORDERED: METR250 PO (17:30)
[2020-08-25] MEDS ORDERED: ONDA4ODT MM (17:33)
[2020-08-25] MEDS ORDERED: Nicoderm Cq1 EAC1 TOP (17:33)
[2020-08-25] MEDS ORDERED: VISBIOME PROBI1 EACH PO (17:36)
[2020-08-25] MEDS ORDERED: HYDROCODONE AC PO (17:36)
[2020-08-25] MEDS ORDERED: QUETIAPINE FUMA50 MG PO (17:36)
--- NOTE | 2020-08-25 18:48 | NUR ---
WOUND VAC CHANGED TO HOME SYSTEM, NO COMPLICATIONS. PATIENT PROVIDED INSTUCTIONS ON FOLLOW-UP WITH WOUND CLINIC, AND INFUSION CLINIC. ALL QUESTIONS ANSWERED. PATIENT LEFT WITH WOUND VAC SUPPLIES AND ALL PERSONAL BELONGINGS. IV REMAINED IN PLACE, DIRECTED BY NEWS PRODUCTION ASSISTANT LORI. PATIENT TO BE SEEN AT INFUSION CLINIC X15 DAYS, STARTING TOMORROW.
== END 2020-08-25 18:21 | disposition home health service (06) | DRG 264 ==
LOC: ER 19:26 → MEDS 22:19
PROVIDERS: Family Medicine; Internal Medicine; Orthopaedic Surgery; ADMIT Internal Medicine
PROC: 0JBN0ZZ Excision of Right Lower Leg Subcutaneous Tissue and Fascia, Open Approach (ICD-10-PCS; principal; 2020-08-18 15:00)
DX: I83.019 Varicose veins of right lower extremity with ulcer of unspecified site (principal); L03.115 Cellulitis of right lower limb; L97.219 Non-pressure chronic ulcer of right calf with unspecified severity; F17.210 Nicotine dependence, cigarettes, uncomplicated; F41.8 Other specified anxiety disorders; Z98.84 Bariatric surgery status; G62.9 Polyneuropathy, unspecified; D63.8 Anemia in other chronic diseases classified elsewhere; Z20.828 Contact with and (suspected) exposure to other viral communicable diseases
CPT/HCPCS: 0241U; 36415; 73701; 80048; 80053; 80069; 80202; 82565; 85025; 87070; 87071; 87075; 87205; 94640; 94760; 96365; 96367; 99284-25; A9270; J0692; J1100; J1650; J1956; J2185; J2250; J2405; J2704; J3010; J3370; J7030; J7050; Q9967

== ENCOUNTER 2020-08-26 00:09 | Day surgery (SDC) | payer MEDICARE ==
[~2020-08-26 00:09] MED LIST changes: +ACET325 PO; +FERROUS SULFAT324 MG PO; +HYDROCODONE AC PO; +LEVO750 IV; +METR250 PO; +MULVITA PO; +Nicoderm Cq1 EAC1 TOP; +ONDA4ODT MM; +QUETIAPINE FUMA50 MG PO; +VISBIOME PROBI1 EACH PO
== END 2020-08-26 09:55 | disposition home or self-care (01) ==
LOC: ATC 00:09
DX: L03.115 Cellulitis of right lower limb (principal); Z88.0 Allergy status to penicillin; Z88.2 Allergy status to sulfonamides; Z88.5 Allergy status to narcotic agent; Z88.6 Allergy status to analgesic agent; Z88.8 Allergy status to other drugs, medicaments and biological substances; Z91.013 Allergy to seafood; F17.210 Nicotine dependence, cigarettes, uncomplicated; E88.09 Other disorders of plasma-protein metabolism, not elsewhere classified
CPT/HCPCS: 96365; J1335

== ENCOUNTER 2020-08-27 00:12 | Day surgery (SDC) | payer MEDICARE ==
[2020-08-28] MEDS ORDERED: ALPR.5 PO (10:52)
== END 2020-08-27 09:20 | disposition home or self-care (01) ==
LOC: ATC 00:12
DX: L03.115 Cellulitis of right lower limb (principal); Z88.0 Allergy status to penicillin; Z88.6 Allergy status to analgesic agent; Z88.2 Allergy status to sulfonamides; Z88.8 Allergy status to other drugs, medicaments and biological substances; Z91.013 Allergy to seafood; L97.812 Non-pressure chronic ulcer of other part of right lower leg with fat layer exposed; I73.9 Peripheral vascular disease, unspecified; I87.2 Venous insufficiency (chronic) (peripheral); Z79.899 Other long term (current) drug therapy
CPT/HCPCS: 96365; J1335

== ENCOUNTER 2020-08-27 00:32 | Day surgery (SDC) | payer MEDICARE ==
[2020-08-28] MEDS ORDERED: ALPR.5 PO (10:52)
== END 2020-08-27 23:25 | disposition home or self-care (01) ==
LOC: WOUND 00:32
DX: L97.812 Non-pressure chronic ulcer of other part of right lower leg with fat layer exposed (principal); I73.9 Peripheral vascular disease, unspecified; I87.2 Venous insufficiency (chronic) (peripheral); F17.210 Nicotine dependence, cigarettes, uncomplicated; J45.909 Unspecified asthma, uncomplicated; Z79.899 Other long term (current) drug therapy

== ENCOUNTER 2020-08-28 09:45 | Day surgery (SDC) | payer MEDICARE ==
[2020-08-28] MEDS ORDERED: ALPR.5 PO (10:52)
--- NOTE | 2020-08-28 10:53 | NUR ---
PT'S WOUND VAC NOT FUNCTIONING PROPERLY. TOOK SUCTION PIECE OFF AND REPLACED IT WITH NEW SUCTION CONNECTING PIECE. LEFT ORIGINAL BLACK FOAM AND DRAPE UNDISTURBED IT WAS CHANGED IN THE WOUND CLINIC YESTERDAY. WOUND VAC IS NOW FUNCTIONING PROPERLY WITHOUT ANY LEAKS. CONTINUOUS 120 MMHG PRESSURE. DISCUSSED WITH PT THE OPTION OF HAVING A POWERGLIDE IV PLACED FOR HOME INFUSIONS OF THE ANTIBIOTIC. PT DECLINES POWERGLIDE. SHE STATES SHE WILL BE COMING INTO THE [facility] DAILY FOR THE ANTIBIOTICS AND WOULD LIKE TO STICK WITH THE PERIPHERAL IV FOR NOW AND CHANGE THAT NEEDED. SHE STATES SHE CANNOT AFFORD THE DAILY BILL FOR IV ANTIBIOTICS AT HOME.
== END 2020-08-28 10:42 | disposition home or self-care (01) ==
LOC: ATC 09:45
DX: L97.812 Non-pressure chronic ulcer of other part of right lower leg with fat layer exposed (principal); I73.9 Peripheral vascular disease, unspecified; I87.2 Venous insufficiency (chronic) (peripheral)
CPT/HCPCS: J1335

== ENCOUNTER 2020-08-29 00:07 | Day surgery (SDC) | payer MEDICARE ==
[~2020-08-29 00:07] MED LIST changes: +ALPR.5 PO
== END 2020-08-29 14:24 | disposition home or self-care (01) ==
LOC: ATC 00:07
DX: L03.115 Cellulitis of right lower limb (principal); L97.812 Non-pressure chronic ulcer of other part of right lower leg with fat layer exposed; I73.9 Peripheral vascular disease, unspecified; I87.2 Venous insufficiency (chronic) (peripheral); Z88.8 Allergy status to other drugs, medicaments and biological substances; Z88.6 Allergy status to analgesic agent; Z88.5 Allergy status to narcotic agent; Z88.0 Allergy status to penicillin; Z91.013 Allergy to seafood; Z79.899 Other long term (current) drug therapy
CPT/HCPCS: J1335

== ENCOUNTER 2020-08-30 00:15 | Day surgery (SDC) | payer MEDICARE | END 2020-08-30 14:59 | disposition home or self-care (01) | LOC: ATC 00:15 | DX: L03.115 Cellulitis of right lower limb (principal); L97.812 Non-pressure chronic ulcer of other part of right lower leg with fat layer exposed; I73.9 Peripheral vascular disease, unspecified; I87.2 Venous insufficiency (chronic) (peripheral); Z88.0 Allergy status to penicillin; Z88.2 Allergy status to sulfonamides; Z88.5 Allergy status to narcotic agent; Z88.6 Allergy status to analgesic agent; Z88.8 Allergy status to other drugs, medicaments and biological substances; Z91.013 Allergy to seafood | CPT/HCPCS: J1335 ==

== ENCOUNTER 2020-08-31 00:07 | Day surgery (SDC) | payer MEDICARE | END 2020-08-31 10:46 | disposition home or self-care (01) | LOC: ATC 00:07 | DX: L03.115 Cellulitis of right lower limb (principal); Z79.2 Long term (current) use of antibiotics; Z79.82 Long term (current) use of aspirin; Z79.899 Other long term (current) drug therapy; Z88.0 Allergy status to penicillin; Z88.2 Allergy status to sulfonamides; Z88.5 Allergy status to narcotic agent; Z88.6 Allergy status to analgesic agent; Z91.013 Allergy to seafood; Z79.51 Long term (current) use of inhaled steroids; Z91.09 Other allergy status, other than to drugs and biological substances | CPT/HCPCS: J1335 ==

== ENCOUNTER 2020-09-01 00:08 | Day surgery (SDC) | payer MEDICARE | END 2020-09-01 10:50 | disposition home or self-care (01) | LOC: ATC 00:08 | DX: L03.115 Cellulitis of right lower limb (principal); L97.812 Non-pressure chronic ulcer of other part of right lower leg with fat layer exposed; I73.9 Peripheral vascular disease, unspecified; I87.2 Venous insufficiency (chronic) (peripheral); Z88.0 Allergy status to penicillin; Z88.2 Allergy status to sulfonamides; Z88.5 Allergy status to narcotic agent; Z88.6 Allergy status to analgesic agent; Z88.8 Allergy status to other drugs, medicaments and biological substances; Z91.013 Allergy to seafood | CPT/HCPCS: 96365; J1335 ==

== ENCOUNTER 2020-09-02 00:14 | Day surgery (SDC) | payer MEDICARE | END 2020-09-02 10:20 | disposition home or self-care (01) | LOC: ATC 00:14 | DX: L03.115 Cellulitis of right lower limb (principal); L97.812 Non-pressure chronic ulcer of other part of right lower leg with fat layer exposed; F41.9 Anxiety disorder, unspecified; I73.9 Peripheral vascular disease, unspecified; I87.2 Venous insufficiency (chronic) (peripheral); G62.9 Polyneuropathy, unspecified; M48.00 Spinal stenosis, site unspecified; Z88.0 Allergy status to penicillin; Z88.2 Allergy status to sulfonamides; Z88.5 Allergy status to narcotic agent; Z88.6 Allergy status to analgesic agent; Z91.013 Allergy to seafood; Z91.09 Other allergy status, other than to drugs and biological substances; Z79.2 Long term (current) use of antibiotics; Z79.82 Long term (current) use of aspirin; Z79.51 Long term (current) use of inhaled steroids; Z79.899 Other long term (current) drug therapy | CPT/HCPCS: 96365; J1335 ==

== ENCOUNTER 2020-09-04 00:31 | Day surgery (SDC) | payer MEDICARE ==
--- NOTE | 2020-09-04 11:52 | NUR ---
Spoke with tonnage compilation clerk. Orders rec'd to change [facility] dsg in the [facility] on Wednesday 09/05. Wound clinic will change Emerald's dressing on 09/08 and then December in wound center states that she will place order to resume HH services for WVAC changes starting after Emerald's visit to the wound center on 09/08.
== END 2020-09-04 10:44 | disposition home or self-care (01) ==
LOC: ATC 00:31
DX: L97.812 Non-pressure chronic ulcer of other part of right lower leg with fat layer exposed (principal); I73.9 Peripheral vascular disease, unspecified; I87.2 Venous insufficiency (chronic) (peripheral)
CPT/HCPCS: J1335

== ENCOUNTER 2020-09-05 00:47 | Day surgery (SDC) | payer MEDICARE ==
[2020-09-06] MEDS ORDERED: LOPE2C (14:12)
== END 2020-09-05 12:00 | disposition home or self-care (01) ==
LOC: ATC 00:47
DX: L03.115 Cellulitis of right lower limb (principal); L97.812 Non-pressure chronic ulcer of other part of right lower leg with fat layer exposed; I73.9 Peripheral vascular disease, unspecified; I87.2 Venous insufficiency (chronic) (peripheral); Z88.0 Allergy status to penicillin; Z88.2 Allergy status to sulfonamides; Z88.5 Allergy status to narcotic agent; Z88.6 Allergy status to analgesic agent; Z91.013 Allergy to seafood
CPT/HCPCS: J1335

== ENCOUNTER 2020-09-05 12:06 | Emergency (ER) | payer MEDICARE ==
[~2020-09-05] VITALS: Ht 157.5 cm; Wt 98.9 kg
[2020-09-06] MEDS ORDERED: LOPE2C (14:12)
== END 2020-09-05 14:00 | disposition home or self-care (01) ==
LOC: ER 12:06
DX: A04.72 Enterocolitis due to Clostridium difficile, not specified as recurrent (principal); F17.200 Nicotine dependence, unspecified, uncomplicated; Z79.82 Long term (current) use of aspirin; Z79.899 Other long term (current) drug therapy
CPT/HCPCS: 36415; 87493; 99283

== ENCOUNTER 2020-09-06 00:21 | Day surgery (SDC) | payer MEDICARE ==
[2020-09-06] MEDS ORDERED: LOPE2C (14:12)
--- NOTE | 2020-09-06 14:14 | NUR ---
THIS RN ATTEMPED IV X2 IN RFA, UNSUCCESSFUL. PT TOLERATED WELL.
--- NOTE | 2020-09-06 14:21 | NUR ---
IV WRAPPED WITH 2X2'S AND COBAN. LEFT IN PLACE FOR INFUSION TOMORROW.
== END 2020-09-06 14:19 | disposition home or self-care (01) ==
LOC: ATC 00:21
DX: L03.115 Cellulitis of right lower limb (principal); Z88.0 Allergy status to penicillin; Z88.2 Allergy status to sulfonamides; Z88.6 Allergy status to analgesic agent; Z88.5 Allergy status to narcotic agent; Z88.8 Allergy status to other drugs, medicaments and biological substances; Z91.013 Allergy to seafood; L97.812 Non-pressure chronic ulcer of other part of right lower leg with fat layer exposed; I73.9 Peripheral vascular disease, unspecified; I87.2 Venous insufficiency (chronic) (peripheral)
CPT/HCPCS: J1335

== ENCOUNTER 2020-09-08 00:08 | Day surgery (SDC) | payer MEDICARE ==
[~2020-09-08 00:08] MED LIST changes: +LOPE2C
--- NOTE | 2020-09-08 10:10 | NUR ---
PT CONCERNED ABOUT IV BEING PATENT. IV FLUSHED 10CC AND LOOKED FINE. HAD IDANIA PRAKASH COME IN AND LOOK AT IV AND SHE STATED TO PT THAT IT LOOKED OK. WILL DC IV AFTER THIS INFUSION.
== END 2020-09-08 10:30 | disposition home or self-care (01) ==
LOC: ATC 00:08
DX: L03.115 Cellulitis of right lower limb (principal); L97.812 Non-pressure chronic ulcer of other part of right lower leg with fat layer exposed; I87.2 Venous insufficiency (chronic) (peripheral); I73.9 Peripheral vascular disease, unspecified; F41.9 Anxiety disorder, unspecified; Z79.2 Long term (current) use of antibiotics; Z79.899 Other long term (current) drug therapy; Z88.0 Allergy status to penicillin; Z88.2 Allergy status to sulfonamides; Z88.5 Allergy status to narcotic agent; Z88.6 Allergy status to analgesic agent; Z91.09 Other allergy status, other than to drugs and biological substances; Z91.013 Allergy to seafood; Z79.82 Long term (current) use of aspirin; Z20.828 Contact with and (suspected) exposure to other viral communicable diseases
CPT/HCPCS: 96365; J1335

== ENCOUNTER 2020-09-08 00:34 | Day surgery (SDC) | payer MEDICARE | END 2020-09-08 23:00 | disposition home or self-care (01) | LOC: WOUND 00:34 | DX: L03.115 Cellulitis of right lower limb (principal); I96 Gangrene, not elsewhere classified; L97.812 Non-pressure chronic ulcer of other part of right lower leg with fat layer exposed; I87.2 Venous insufficiency (chronic) (peripheral); D64.9 Anemia, unspecified; J44.9 Chronic obstructive pulmonary disease, unspecified; G62.9 Polyneuropathy, unspecified; Z88.0 Allergy status to penicillin; Z88.2 Allergy status to sulfonamides; Z88.5 Allergy status to narcotic agent; Z88.6 Allergy status to analgesic agent; Z91.09 Other allergy status, other than to drugs and biological substances; Z91.013 Allergy to seafood; Z79.82 Long term (current) use of aspirin; Z20.828 Contact with and (suspected) exposure to other viral communicable diseases ==

== ENCOUNTER 2020-09-09 05:41 | Day surgery (SDC) | payer MEDICARE | END 2020-09-09 10:45 | disposition home or self-care (01) | LOC: ATC 05:41 | DX: L03.115 Cellulitis of right lower limb (principal); L97.512 Non-pressure chronic ulcer of other part of right foot with fat layer exposed; I87.2 Venous insufficiency (chronic) (peripheral); I73.9 Peripheral vascular disease, unspecified; F41.9 Anxiety disorder, unspecified; Z79.2 Long term (current) use of antibiotics; Z79.82 Long term (current) use of aspirin; Z79.899 Other long term (current) drug therapy; Z88.0 Allergy status to penicillin; Z88.2 Allergy status to sulfonamides; Z88.5 Allergy status to narcotic agent; Z88.6 Allergy status to analgesic agent; Z91.09 Other allergy status, other than to drugs and biological substances; Z91.013 Allergy to seafood; Z20.828 Contact with and (suspected) exposure to other viral communicable diseases | CPT/HCPCS: 96365; J1335 ==

== ENCOUNTER 2020-09-15 00:26 | Day surgery (SDC) | payer MEDICARE | END 2020-09-15 23:00 | disposition home or self-care (01) | LOC: WOUND 00:26 | DX: I96 Gangrene, not elsewhere classified (principal); L97.213 Non-pressure chronic ulcer of right calf with necrosis of muscle; L08.9 Local infection of the skin and subcutaneous tissue, unspecified; I87.2 Venous insufficiency (chronic) (peripheral); M48.00 Spinal stenosis, site unspecified; D64.9 Anemia, unspecified; J44.9 Chronic obstructive pulmonary disease, unspecified; G62.9 Polyneuropathy, unspecified; Z88.0 Allergy status to penicillin; Z88.2 Allergy status to sulfonamides; Z88.5 Allergy status to narcotic agent; Z88.6 Allergy status to analgesic agent; Z91.013 Allergy to seafood; Z79.82 Long term (current) use of aspirin; Z79.2 Long term (current) use of antibiotics; Z79.899 Other long term (current) drug therapy; Z20.828 Contact with and (suspected) exposure to other viral communicable diseases; Z91.09 Other allergy status, other than to drugs and biological substances | CPT/HCPCS: G0463 ==

== ENCOUNTER 2020-09-23 00:30 | Day surgery (SDC) | payer MEDICARE | END 2020-09-23 22:47 | disposition home or self-care (01) | LOC: WOUND 00:30 | DX: L97.812 Non-pressure chronic ulcer of other part of right lower leg with fat layer exposed (principal); I87.2 Venous insufficiency (chronic) (peripheral); I73.9 Peripheral vascular disease, unspecified; D64.9 Anemia, unspecified; J44.9 Chronic obstructive pulmonary disease, unspecified; F41.8 Other specified anxiety disorders; G62.9 Polyneuropathy, unspecified; Z79.2 Long term (current) use of antibiotics; Z98.84 Bariatric surgery status ==

== ENCOUNTER 2020-09-30 00:22 | Day surgery (SDC) | payer MEDICARE | END 2020-09-30 22:50 | disposition home or self-care (01) | LOC: WOUND 00:22 | DX: L97.812 Non-pressure chronic ulcer of other part of right lower leg with fat layer exposed (principal); I73.9 Peripheral vascular disease, unspecified; I87.2 Venous insufficiency (chronic) (peripheral) | CPT/HCPCS: A9270 ==

== ENCOUNTER 2020-10-07 00:45 | Day surgery (SDC) | payer MEDICARE | END 2020-10-07 23:13 | disposition home or self-care (01) | LOC: WOUND 00:45 | DX: I96 Gangrene, not elsewhere classified (principal); L97.813 Non-pressure chronic ulcer of other part of right lower leg with necrosis of muscle; L08.9 Local infection of the skin and subcutaneous tissue, unspecified; I87.2 Venous insufficiency (chronic) (peripheral); G62.9 Polyneuropathy, unspecified; D64.9 Anemia, unspecified; J44.9 Chronic obstructive pulmonary disease, unspecified; Z79.2 Long term (current) use of antibiotics; Z79.899 Other long term (current) drug therapy; Z88.0 Allergy status to penicillin; Z88.2 Allergy status to sulfonamides; Z88.5 Allergy status to narcotic agent; Z88.6 Allergy status to analgesic agent; Z91.013 Allergy to seafood; Z91.09 Other allergy status, other than to drugs and biological substances; Z79.82 Long term (current) use of aspirin; Z79.51 Long term (current) use of inhaled steroids; Z20.822 Contact with and (suspected) exposure to COVID-19 ==

== ENCOUNTER 2020-10-15 00:36 | Day surgery (SDC) | payer MEDICARE | END 2020-10-15 23:35 | disposition home or self-care (01) | LOC: WOUND 00:36 | DX: L97.812 Non-pressure chronic ulcer of other part of right lower leg with fat layer exposed (principal); I87.2 Venous insufficiency (chronic) (peripheral); J44.9 Chronic obstructive pulmonary disease, unspecified | CPT/HCPCS: A9270 ==

== ENCOUNTER 2020-10-23 02:13 | Day surgery (SDC) | payer MEDICARE | END 2020-10-23 23:45 | disposition home or self-care (01) | LOC: WOUND 02:13 | DX: L97.812 Non-pressure chronic ulcer of other part of right lower leg with fat layer exposed (principal); I87.2 Venous insufficiency (chronic) (peripheral); J44.9 Chronic obstructive pulmonary disease, unspecified; Z98.84 Bariatric surgery status ==

== ENCOUNTER 2020-10-30 02:22 | Day surgery (SDC) | payer MEDICARE | END 2020-10-30 22:47 | disposition home or self-care (01) | LOC: WOUND 02:22 | DX: L97.812 Non-pressure chronic ulcer of other part of right lower leg with fat layer exposed (principal); I87.2 Venous insufficiency (chronic) (peripheral); D64.9 Anemia, unspecified; J44.9 Chronic obstructive pulmonary disease, unspecified; G62.9 Polyneuropathy, unspecified; F41.8 Other specified anxiety disorders | CPT/HCPCS: A9270 ==

== ENCOUNTER 2020-11-06 00:45 | Day surgery (SDC) | payer MEDICARE | END 2020-11-06 23:50 | disposition home or self-care (01) | LOC: WOUND 00:45 | DX: L97.812 Non-pressure chronic ulcer of other part of right lower leg with fat layer exposed (principal); I87.2 Venous insufficiency (chronic) (peripheral); J44.9 Chronic obstructive pulmonary disease, unspecified; D64.9 Anemia, unspecified | CPT/HCPCS: A9270 ==

== ENCOUNTER 2020-11-13 01:07 | Day surgery (SDC) | payer MEDICARE | END 2020-11-13 22:50 | disposition home or self-care (01) | LOC: WOUND 01:07 | DX: L97.815 Non-pressure chronic ulcer of other part of right lower leg with muscle involvement without evidence of necrosis (principal); L03.116 Cellulitis of left lower limb; L03.115 Cellulitis of right lower limb; I87.2 Venous insufficiency (chronic) (peripheral); J44.9 Chronic obstructive pulmonary disease, unspecified; G62.9 Polyneuropathy, unspecified; Z98.84 Bariatric surgery status; Z88.6 Allergy status to analgesic agent; Z88.0 Allergy status to penicillin; Z88.2 Allergy status to sulfonamides | CPT/HCPCS: 87071; 87075; 87147; 87205; A9270 ==

== ENCOUNTER 2020-11-20 00:45 | Day surgery (SDC) | payer MEDICARE | END 2020-11-20 22:49 | disposition home or self-care (01) | LOC: WOUND 00:45 | DX: L97.812 Non-pressure chronic ulcer of other part of right lower leg with fat layer exposed (principal); L03.115 Cellulitis of right lower limb; L03.116 Cellulitis of left lower limb; I87.2 Venous insufficiency (chronic) (peripheral); J44.9 Chronic obstructive pulmonary disease, unspecified; M48.00 Spinal stenosis, site unspecified; G62.9 Polyneuropathy, unspecified; Z88.6 Allergy status to analgesic agent; Z88.1 Allergy status to other antibiotic agents; Z88.5 Allergy status to narcotic agent; Z88.0 Allergy status to penicillin; Z88.8 Allergy status to other drugs, medicaments and biological substances | CPT/HCPCS: A9270 ==

== ENCOUNTER 2020-11-27 00:50 | Day surgery (SDC) | payer MEDICARE | END 2020-11-27 23:10 | disposition home or self-care (01) | LOC: WOUND 00:50 | DX: L97.815 Non-pressure chronic ulcer of other part of right lower leg with muscle involvement without evidence of necrosis (principal); L03.116 Cellulitis of left lower limb; I87.2 Venous insufficiency (chronic) (peripheral); D64.9 Anemia, unspecified; J44.9 Chronic obstructive pulmonary disease, unspecified; G62.9 Polyneuropathy, unspecified; M48.00 Spinal stenosis, site unspecified; Z91.81 History of falling; Z88.8 Allergy status to other drugs, medicaments and biological substances | CPT/HCPCS: A9270 ==

== ENCOUNTER 2020-12-04 00:32 | Day surgery (SDC) | payer MEDICARE | END 2020-12-04 22:44 | disposition home or self-care (01) | LOC: WOUND 00:32 | DX: L97.815 Non-pressure chronic ulcer of other part of right lower leg with muscle involvement without evidence of necrosis (principal); L03.116 Cellulitis of left lower limb; I87.2 Venous insufficiency (chronic) (peripheral); J44.9 Chronic obstructive pulmonary disease, unspecified; Z98.84 Bariatric surgery status | CPT/HCPCS: A9270 ==

== ENCOUNTER 2020-12-11 02:00 | Day surgery (SDC) | payer MEDICARE | END 2020-12-11 22:49 | disposition home or self-care (01) | LOC: WOUND 02:00 | DX: L97.815 Non-pressure chronic ulcer of other part of right lower leg with muscle involvement without evidence of necrosis (principal); L03.116 Cellulitis of left lower limb; I87.2 Venous insufficiency (chronic) (peripheral); D64.9 Anemia, unspecified; J44.9 Chronic obstructive pulmonary disease, unspecified; G62.9 Polyneuropathy, unspecified; M48.00 Spinal stenosis, site unspecified; Z91.81 History of falling; Z88.8 Allergy status to other drugs, medicaments and biological substances | CPT/HCPCS: A9270 ==

== ENCOUNTER 2020-12-18 00:24 | Day surgery (SDC) | payer MEDICARE | END 2020-12-18 22:53 | disposition home or self-care (01) | LOC: WOUND 00:24 | DX: L97.815 Non-pressure chronic ulcer of other part of right lower leg with muscle involvement without evidence of necrosis (principal); L03.116 Cellulitis of left lower limb; J44.9 Chronic obstructive pulmonary disease, unspecified; G62.9 Polyneuropathy, unspecified; I73.9 Peripheral vascular disease, unspecified; I87.2 Venous insufficiency (chronic) (peripheral); Z86.2 Personal history of diseases of the blood and blood-forming organs and certain disorders involving the immune mechanism | CPT/HCPCS: A9270 ==

== ENCOUNTER 2020-12-25 00:23 | Day surgery (SDC) | payer MEDICARE | END 2020-12-25 23:01 | disposition home or self-care (01) | LOC: WOUND 00:23 | DX: L97.812 Non-pressure chronic ulcer of other part of right lower leg with fat layer exposed (principal); L03.115 Cellulitis of right lower limb; I87.2 Venous insufficiency (chronic) (peripheral); J45.909 Unspecified asthma, uncomplicated | CPT/HCPCS: A9270 ==

== ENCOUNTER 2021-01-01 00:47 | Day surgery (SDC) | payer MEDICARE | END 2021-01-01 23:12 | disposition home or self-care (01) | LOC: WOUND 00:47 | DX: L97.815 Non-pressure chronic ulcer of other part of right lower leg with muscle involvement without evidence of necrosis (principal); I87.2 Venous insufficiency (chronic) (peripheral); L03.116 Cellulitis of left lower limb; J44.9 Chronic obstructive pulmonary disease, unspecified; Z98.84 Bariatric surgery status | CPT/HCPCS: A9270 ==

== ENCOUNTER 2021-01-08 00:41 | Day surgery (SDC) | payer MEDICARE | END 2021-01-08 23:28 | disposition home or self-care (01) | LOC: WOUND 00:41 | DX: L97.812 Non-pressure chronic ulcer of other part of right lower leg with fat layer exposed (principal); I87.2 Venous insufficiency (chronic) (peripheral); J44.9 Chronic obstructive pulmonary disease, unspecified | CPT/HCPCS: A9270 ==

== ENCOUNTER 2021-01-22 02:03 | Day surgery (SDC) | payer MEDICARE | END 2021-01-22 23:12 | disposition home or self-care (01) | LOC: WOUND 02:03 | DX: L97.812 Non-pressure chronic ulcer of other part of right lower leg with fat layer exposed (principal); I87.2 Venous insufficiency (chronic) (peripheral); J44.9 Chronic obstructive pulmonary disease, unspecified | CPT/HCPCS: A9270 ==

== ENCOUNTER 2021-01-29 00:42 | Day surgery (SDC) | payer MEDICARE | END 2021-01-29 23:08 | disposition home or self-care (01) | LOC: WOUND 00:42 | DX: L97.815 Non-pressure chronic ulcer of other part of right lower leg with muscle involvement without evidence of necrosis (principal); I87.2 Venous insufficiency (chronic) (peripheral); J44.9 Chronic obstructive pulmonary disease, unspecified; Z88.0 Allergy status to penicillin; Z88.1 Allergy status to other antibiotic agents; Z88.6 Allergy status to analgesic agent; Z88.5 Allergy status to narcotic agent; Z88.8 Allergy status to other drugs, medicaments and biological substances | CPT/HCPCS: A9270; Q4196 ==

== ENCOUNTER 2021-02-05 00:22 | Day surgery (SDC) | payer MEDICARE | END 2021-02-05 22:49 | disposition home or self-care (01) | LOC: WOUND 00:22 | DX: L97.812 Non-pressure chronic ulcer of other part of right lower leg with fat layer exposed (principal); I87.2 Venous insufficiency (chronic) (peripheral); J44.9 Chronic obstructive pulmonary disease, unspecified | CPT/HCPCS: A9270; Q4196 ==

== ENCOUNTER 2021-02-12 00:50 | Day surgery (SDC) | payer MEDICARE | END 2021-02-12 23:14 | disposition home or self-care (01) | LOC: WOUND 00:50 | DX: L03.115 Cellulitis of right lower limb (principal); L03.116 Cellulitis of left lower limb; S81.801A Unspecified open wound, right lower leg, initial encounter; X58.XXXA Exposure to other specified factors, initial encounter; L97.812 Non-pressure chronic ulcer of other part of right lower leg with fat layer exposed; I87.2 Venous insufficiency (chronic) (peripheral); J44.9 Chronic obstructive pulmonary disease, unspecified | CPT/HCPCS: A9270 ==

== ENCOUNTER 2021-02-22 00:44 | Day surgery (SDC) | payer MEDICARE | END 2021-02-22 23:02 | disposition home or self-care (01) | LOC: WOUND 00:44 | DX: S81.801D Unspecified open wound, right lower leg, subsequent encounter (principal); X58.XXXD Exposure to other specified factors, subsequent encounter; L97.812 Non-pressure chronic ulcer of other part of right lower leg with fat layer exposed; I87.2 Venous insufficiency (chronic) (peripheral); J44.9 Chronic obstructive pulmonary disease, unspecified | CPT/HCPCS: A9270 ==

== ENCOUNTER 2021-02-26 08:05 | Day surgery (SDC) | payer MEDICARE | END 2021-02-27 00:38 | disposition home or self-care (01) | LOC: WOUND 08:05 | DX: L97.812 Non-pressure chronic ulcer of other part of right lower leg with fat layer exposed (principal); S81.801D Unspecified open wound, right lower leg, subsequent encounter; X58.XXXD Exposure to other specified factors, subsequent encounter; I87.2 Venous insufficiency (chronic) (peripheral); L03.115 Cellulitis of right lower limb; J44.9 Chronic obstructive pulmonary disease, unspecified | CPT/HCPCS: A9270; G0463 ==

== ENCOUNTER 2021-03-12 01:45 | Day surgery (SDC) | payer MEDICARE | END 2021-03-12 12:00 | disposition home or self-care (01) | LOC: WOUND 01:45 | DX: L03.115 Cellulitis of right lower limb (principal); S81.801D Unspecified open wound, right lower leg, subsequent encounter; X58.XXXD Exposure to other specified factors, subsequent encounter; L97.812 Non-pressure chronic ulcer of other part of right lower leg with fat layer exposed; I87.2 Venous insufficiency (chronic) (peripheral); J45.909 Unspecified asthma, uncomplicated | CPT/HCPCS: A9270 ==

== ENCOUNTER 2021-04-02 01:14 | Day surgery (SDC) | payer MEDICARE | END 2021-04-02 22:49 | disposition home or self-care (01) | LOC: WOUND 01:14 | DX: S81.801A Unspecified open wound, right lower leg, initial encounter (principal); L03.115 Cellulitis of right lower limb; I87.2 Venous insufficiency (chronic) (peripheral); J44.9 Chronic obstructive pulmonary disease, unspecified; G62.9 Polyneuropathy, unspecified; X58.XXXA Exposure to other specified factors, initial encounter; Z98.84 Bariatric surgery status | CPT/HCPCS: A9270 ==

== ENCOUNTER 2021-04-16 01:04 | Day surgery (SDC) | payer MEDICARE | END 2021-04-16 23:19 | disposition home or self-care (01) | LOC: WOUND 01:04 | DX: S81.801A Unspecified open wound, right lower leg, initial encounter (principal); L03.115 Cellulitis of right lower limb; I87.2 Venous insufficiency (chronic) (peripheral); J44.9 Chronic obstructive pulmonary disease, unspecified; G62.9 Polyneuropathy, unspecified; X58.XXXA Exposure to other specified factors, initial encounter; Z88.0 Allergy status to penicillin; Z88.8 Allergy status to other drugs, medicaments and biological substances; Z88.1 Allergy status to other antibiotic agents; Z88.5 Allergy status to narcotic agent; Z88.6 Allergy status to analgesic agent | CPT/HCPCS: A9270 ==

== ENCOUNTER 2021-04-23 00:22 | Day surgery (SDC) | payer MEDICARE | END 2021-04-23 23:00 | disposition home or self-care (01) | LOC: WOUND 00:22 | DX: S81.801D Unspecified open wound, right lower leg, subsequent encounter (principal); X58.XXXD Exposure to other specified factors, subsequent encounter; L97.812 Non-pressure chronic ulcer of other part of right lower leg with fat layer exposed; L03.115 Cellulitis of right lower limb; I87.2 Venous insufficiency (chronic) (peripheral) | CPT/HCPCS: A9270 ==

== ENCOUNTER 2021-04-30 01:13 | Day surgery (SDC) | payer MEDICARE | END 2021-04-30 23:42 | disposition home or self-care (01) | LOC: WOUND 01:13 | DX: L97.812 Non-pressure chronic ulcer of other part of right lower leg with fat layer exposed (principal); I87.2 Venous insufficiency (chronic) (peripheral); J44.9 Chronic obstructive pulmonary disease, unspecified; Z88.6 Allergy status to analgesic agent; Z88.1 Allergy status to other antibiotic agents; Z88.5 Allergy status to narcotic agent; Z88.0 Allergy status to penicillin; Z88.8 Allergy status to other drugs, medicaments and biological substances | CPT/HCPCS: A9270; G0463 ==

== ENCOUNTER 2021-05-21 02:35 | Day surgery (SDC) | payer MEDICARE | END 2021-05-21 23:33 | disposition home or self-care (01) | LOC: WOUND 02:35 | DX: L97.815 Non-pressure chronic ulcer of other part of right lower leg with muscle involvement without evidence of necrosis (principal); I87.2 Venous insufficiency (chronic) (peripheral); J44.9 Chronic obstructive pulmonary disease, unspecified; Z88.0 Allergy status to penicillin; Z88.1 Allergy status to other antibiotic agents; Z88.5 Allergy status to narcotic agent; Z88.6 Allergy status to analgesic agent; Z88.8 Allergy status to other drugs, medicaments and biological substances | CPT/HCPCS: A9270 ==

== ENCOUNTER 2021-05-28 01:09 | Day surgery (SDC) | payer MEDICARE | END 2021-05-28 23:15 | disposition home or self-care (01) | LOC: WOUND 01:09 | DX: L97.815 Non-pressure chronic ulcer of other part of right lower leg with muscle involvement without evidence of necrosis (principal); I87.2 Venous insufficiency (chronic) (peripheral); J44.9 Chronic obstructive pulmonary disease, unspecified | CPT/HCPCS: A9270 ==

== ENCOUNTER 2021-06-04 01:34 | Day surgery (SDC) | payer MEDICARE | END 2021-06-04 23:27 | disposition home or self-care (01) | LOC: WOUND 01:34 | DX: L97.812 Non-pressure chronic ulcer of other part of right lower leg with fat layer exposed (principal); I87.2 Venous insufficiency (chronic) (peripheral); J44.9 Chronic obstructive pulmonary disease, unspecified | CPT/HCPCS: A9270; G0463 ==

== ENCOUNTER 2021-06-28 08:00 | Day surgery (SDC) | payer MEDICARE | END 2021-06-28 23:59 | disposition home or self-care (01) | LOC: WOUND 08:00 | PROC: 0JBN0ZZ Excision of Right Lower Leg Subcutaneous Tissue and Fascia, Open Approach (ICD-10-PCS; principal; 2021-06-28) | DX: L97.812 Non-pressure chronic ulcer of other part of right lower leg with fat layer exposed (principal); I87.2 Venous insufficiency (chronic) (peripheral); G62.9 Polyneuropathy, unspecified; J44.9 Chronic obstructive pulmonary disease, unspecified; Z98.84 Bariatric surgery status | CPT/HCPCS: A9270 ==

== ENCOUNTER 2021-07-21 02:24 | Day surgery (SDC) | payer MEDICARE | END 2021-07-21 12:00 | disposition home or self-care (01) | LOC: WOUND 02:24 | DX: L97.812 Non-pressure chronic ulcer of other part of right lower leg with fat layer exposed (principal); I87.2 Venous insufficiency (chronic) (peripheral) | CPT/HCPCS: A9270 ==

== ENCOUNTER 2021-08-04 03:15 | Day surgery (SDC) | payer MEDICARE | END 2021-08-04 23:54 | disposition home or self-care (01) | LOC: WOUND 03:15 | DX: L97.812 Non-pressure chronic ulcer of other part of right lower leg with fat layer exposed (principal); I87.2 Venous insufficiency (chronic) (peripheral); J44.9 Chronic obstructive pulmonary disease, unspecified | CPT/HCPCS: A9270 ==

== ENCOUNTER 2021-08-18 01:42 | Day surgery (SDC) | payer MEDICARE | END 2021-08-18 23:14 | disposition home or self-care (01) | LOC: WOUND 01:42 | DX: L97.812 Non-pressure chronic ulcer of other part of right lower leg with fat layer exposed (principal); I87.2 Venous insufficiency (chronic) (peripheral); J44.9 Chronic obstructive pulmonary disease, unspecified | CPT/HCPCS: A9270; G0463 ==

== ENCOUNTER 2021-08-27 04:35 | Day surgery (SDC) | payer MEDICARE | END 2021-08-27 23:25 | disposition home or self-care (01) | LOC: WOUND 04:35 | DX: L97.812 Non-pressure chronic ulcer of other part of right lower leg with fat layer exposed (principal); I87.2 Venous insufficiency (chronic) (peripheral) | CPT/HCPCS: G0463 ==

== ENCOUNTER 2021-09-01 02:47 | Day surgery (SDC) | payer MEDICARE | END 2021-09-01 23:06 | disposition home or self-care (01) | LOC: WOUND 02:47 | PROC: 0JBN0ZZ Excision of Right Lower Leg Subcutaneous Tissue and Fascia, Open Approach (ICD-10-PCS; principal; 2021-09-01) | DX: L97.812 Non-pressure chronic ulcer of other part of right lower leg with fat layer exposed (principal); I87.2 Venous insufficiency (chronic) (peripheral); G62.9 Polyneuropathy, unspecified; J44.9 Chronic obstructive pulmonary disease, unspecified; Z91.048 Other nonmedicinal substance allergy status | CPT/HCPCS: A9270 ==

== ENCOUNTER 2021-09-08 05:34 | Day surgery (SDC) | payer MEDICARE | END 2021-09-08 23:21 | disposition home or self-care (01) | LOC: WOUND 05:34 | DX: L97.812 Non-pressure chronic ulcer of other part of right lower leg with fat layer exposed (principal); S81.802A Unspecified open wound, left lower leg, initial encounter; I87.2 Venous insufficiency (chronic) (peripheral); G62.9 Polyneuropathy, unspecified; J44.9 Chronic obstructive pulmonary disease, unspecified; Z91.048 Other nonmedicinal substance allergy status; Z98.84 Bariatric surgery status; X58.XXXA Exposure to other specified factors, initial encounter | CPT/HCPCS: A9270; G0463 ==

== ENCOUNTER 2021-09-22 05:16 | Day surgery (SDC) | payer MEDICARE | END 2021-09-22 23:45 | disposition home or self-care (01) | LOC: WOUND 05:16 | DX: L97.812 Non-pressure chronic ulcer of other part of right lower leg with fat layer exposed (principal); I87.2 Venous insufficiency (chronic) (peripheral) | CPT/HCPCS: A9270; G0463 ==

== ENCOUNTER 2021-10-27 00:34 | Day surgery (SDC) | payer MEDICARE, OTHER | END 2021-10-27 23:38 | disposition home or self-care (01) | LOC: WOUND 00:34 | DX: L97.812 Non-pressure chronic ulcer of other part of right lower leg with fat layer exposed (principal); I87.2 Venous insufficiency (chronic) (peripheral); J44.9 Chronic obstructive pulmonary disease, unspecified; Z98.84 Bariatric surgery status | CPT/HCPCS: G0463 ==

== ENCOUNTER 2021-11-26 00:40 | Day surgery (SDC) | payer MEDICARE, OTHER | END 2021-11-26 23:59 | disposition home or self-care (01) | LOC: WOUND 00:40 | DX: L97.812 Non-pressure chronic ulcer of other part of right lower leg with fat layer exposed (principal); I87.2 Venous insufficiency (chronic) (peripheral); J44.9 Chronic obstructive pulmonary disease, unspecified | CPT/HCPCS: A9270; G0463 ==

== ENCOUNTER → 2021-11-30 | Outpatient (CLI) | payer MEDICARE, OTHER ==
[~2021-11-30] MED LIST changes: +LEVO750 PO; +OXYC5 PO; +PROBIOTIC1 EA13 PO
[2021-12-01 16:11] LABS: HPV 16 Negative (Negative); HPV 18 Negative (Negative); HPV OTHER HR TYPES Negative (Negative)
[2021-12-02 15:07] LABS: CHLAMYDIA BY NAA Negative (Negative); GONOCOCCUS BY NAA Negative (Negative); TRICH VAG BY NAA Negative (Negative)
== END ==
LOC: LAB SHORT 10:38
PROVIDERS: Registered Nurse Community Health
DX: Z12.4 Encounter for screening for malignant neoplasm of cervix (principal); Z11.3 Encounter for screening for infections with a predominantly sexual mode of transmission; N89.8 Other specified noninflammatory disorders of vagina; Z72.51 High risk heterosexual behavior
CPT/HCPCS: 87491; 87591; 87624; 87661; G0123

== ENCOUNTER 2021-12-03 02:36 | Day surgery (SDC) | payer MEDICARE, OTHER ==
[~2021-12-03 02:36] MED LIST changes: -LEVO750 PO; -OXYC5 PO; -PROBIOTIC1 EA13 PO
== END 2021-12-03 23:33 | disposition home or self-care (01) ==
LOC: WOUND 02:36
DX: S81.801A Unspecified open wound, right lower leg, initial encounter (principal); I73.9 Peripheral vascular disease, unspecified; L03.116 Cellulitis of left lower limb; L03.115 Cellulitis of right lower limb
CPT/HCPCS: A9270; G0463

== ENCOUNTER 2021-12-17 01:09 | Day surgery (SDC) | payer MEDICARE, OTHER | END 2021-12-17 23:51 | disposition home or self-care (01) | LOC: WOUND 01:09 | DX: S81.801A Unspecified open wound, right lower leg, initial encounter (principal); L97.812 Non-pressure chronic ulcer of other part of right lower leg with fat layer exposed; I87.2 Venous insufficiency (chronic) (peripheral) | CPT/HCPCS: A9270; G0463 ==

== ENCOUNTER 2022-01-08 10:22 | Emergency (ER) | payer MEDICARE, OTHER ==
[~2022-01-08] VITALS: Ht 157.5 cm; Wt 72.6 kg
[2022-01-08] MEDS ORDERED: OXYC5 PO ×2 (12:03→12:18)
== END 2022-01-08 12:04 | disposition home or self-care (01) ==
LOC: ER 10:22
DX: S92.341A Displaced fracture of fourth metatarsal bone, right foot, initial encounter for closed fracture (principal); S92.351A Displaced fracture of fifth metatarsal bone, right foot, initial encounter for closed fracture; S92.331A Displaced fracture of third metatarsal bone, right foot, initial encounter for closed fracture; Z88.0 Allergy status to penicillin; Z88.2 Allergy status to sulfonamides; Z88.5 Allergy status to narcotic agent; Z88.6 Allergy status to analgesic agent; Z91.013 Allergy to seafood; Z79.82 Long term (current) use of aspirin; Z79.899 Other long term (current) drug therapy; F17.200 Nicotine dependence, unspecified, uncomplicated; W19.XXXA Unspecified fall, initial encounter
CPT/HCPCS: 28475; 73630; 96374; 99283-25; A9270; J1885

== ENCOUNTER 2022-04-02 08:39 | Observation (INO) | payer MEDICARE, OTHER ==
[~2022-04-02] VITALS: Ht 157.5 cm; Wt 49.9 kg
[~2022-04-02 08:39] MED LIST changes: +OXYC5 PO
[2022-04-02 10:49] LABS: BASOPHILS ABSOLUTE AUTO 0.01 K/mm3 (0.00-0.23); BASOPHILS PERCENT AUTO 0 % (0-2); EOSINOPHILS ABSOLUTE AUTO 0.08 K/mm3 (0.00-0.68); EOSINOPHILS PERCENT AUTO 1 % (0-6); Hematocrit 39.3 % (33.0-51.0); IMMATURE GRAN ABSOLUTE AUTO 0.05 K/mm3 (0.00-0.10); IMMATURE GRAN PERCENT AUTO 1 % (0-1); LYMPHOCYTES ABSOLUTE AUTO 0.91 K/mm3 (0.84-5.20); LYMPHOCYTES PERCENT AUTO 9 % (21-46); MONOCYTES ABSOLUTE AUTO 0.66 K/mm3 (0.16-1.47); MONOCYTES PERCENT AUTO 7 % (4-13); Mean Corpuscular HGB 30.4 pg (26.0-34.0); Mean Corpuscular HGB Conc 33.1 g/dL (31.5-36.5); Mean Corpuscular Volume 92 fL (80-100); Mean Platelet Volume 11.2 fL (9.1-12.4); NEUTROPHILS ABSOLUTE AUTO 8.05 K/mm3 (1.96-9.15); NEUTROPHILS PERCENT AUTO 83 % (41-73); Platelet Count 193 K/mm3 (150-400); RDW Coefficient Variation 14.6 % (11.7-14.2); RDW Standard Deviation 49.4 fL (35.1-46.3); Red Blood Cell Count 4.27 M/mm3 (3.80-5.20); White Blood Cell Count 9.76 K/mm3 (4.00-11.30)
[2022-04-02 11:15] LABS: Albumin, Blood 2.8 g/dL (3.4-5.0); Albumin/Globulin Ratio 0.7 (0.8-1.8); Bilirubin, Total 0.3 mg/dL (0.1-1.0); Calcium, Blood 8.6 mg/dL (8.5-10.1); Creatinine, Blood 0.78 mg/dL (0.40-1.00); Globulin, Blood 4.1 g/dL (2.2-4.0); Potassium, Blood 3.3 mmol/L (3.5-5.5); Total Protein, Blood 6.9 g/dL (6.4-8.2)
[2022-04-02 13:23] LABS: Source, Urine Clean Catch
[2022-04-02 13:33] LABS: Appearance, Urine Hazy (Clear); Bilirubin, Urine Neg (Neg); Blood, Urine 2+ (Neg); Color, Urine Yellow (P-Yellow); Glucose Qualitative, Urine Neg (Neg); Ketones, Urine Neg (Neg); Leukocyte Esterase, Urine 2+ (Neg); Nitrite, Urine Pos (Neg); Protein, Urine 2+ (Neg); Urobilinogen, Urine NORM (Normal)
[2022-04-02 14:08] LABS: Bacteria Many /hpf; Red Blood Cells, Urine 0-2 /hpf (0-2); Squamous Epithelial Cells Mod /hpf (Few)
[2022-04-02 14:13] LABS: U Amphetamine Screen DETECTED; U Barbituate Screen Not Detected; U Benzodiazapine Screen Not Detected; U Buprenorphine Screen Not Detected; U Cannabinoids Screen Not Detected; U Cocaine Screen Not Detected; U Methadone Screen Not Detected; U Methamphetamine Screen DETECTED; U Opiates Screen Not Detected; U Oxycodone Screen Not Detected; U Phencyclidine Screen Not Detected; U Propoxyphene Screen Not Detected
--- NOTE | 2022-04-02 16:49 | NUR ---
DAY SHIFT SUMMARY PT RECEIVED TO MEDICAL FLOOR FROM ED. 52 YR OLD FEMALE WITH CELULITIS. BROUGHT TO FLOOR ON GURNEY AND TRANSFERED TO BED VIA 3 PERSON LIFT. PT STATES SHE IS NOT GOING TO TRANSFER SELF. NEW ADMIT ASSESSMENT COMPLETED, PT STATES SHE HAS NO HOME MEDS SHE DOES LIKE MEDICATIONS. RT KNEE/THIGH/CALF RED AND SWOLLEN, PICTURES IN CHART. CONSULT WITH DR COBB IN ORDERS. PT HAD AN ABCESS REMOVED IN 2019 FROM THIS AREA. PT ABLE TO AMBULATE AT HOME WITH A CANE. PT ON REG DIET AND RA, IV ABX RUNNING. ORIENTED TO ROOM/SURRONDING AREA AND CALL LIGHT. CALL LIGHT WITHIN REACH. PT WOULD ONLY ANSWER QUESTIONS WITH YES OR NO ANSWERS.
[2022-04-03 02:14] LABS: Influenza A, PCR NEGATIVE (NEGATIVE); Influenza B, PCR NEGATIVE (NEGATIVE); Resp Syncytial Virus, PCR NEGATIVE (NEGATIVE); SARS-Cov-2 (COVID-19) PCR, MMC NEGATIVE (NEGATIVE)
[2022-04-03 05:27] LABS: BASOPHILS ABSOLUTE AUTO 0.01 K/mm3 (0.00-0.23); BASOPHILS PERCENT AUTO 0 % (0-2); EOSINOPHILS ABSOLUTE AUTO 0.02 K/mm3 (0.00-0.68); EOSINOPHILS PERCENT AUTO 0 % (0-6); Hematocrit 32.5 % (33.0-51.0); Hemoglobin 10.5 g/dL (11.5-16.0); IMMATURE GRAN ABSOLUTE AUTO 0.01 K/mm3 (0.00-0.10); IMMATURE GRAN PERCENT AUTO 0 % (0-1); LYMPHOCYTES ABSOLUTE AUTO 1.02 K/mm3 (0.84-5.20); LYMPHOCYTES PERCENT AUTO 14 % (21-46); MONOCYTES ABSOLUTE AUTO 0.78 K/mm3 (0.16-1.47); MONOCYTES PERCENT AUTO 11 % (4-13); Mean Corpuscular HGB 29.4 pg (26.0-34.0); Mean Corpuscular HGB Conc 32.3 g/dL (31.5-36.5); Mean Corpuscular Volume 91 fL (80-100); NEUTROPHILS ABSOLUTE AUTO 5.56 K/mm3 (1.96-9.15); NEUTROPHILS PERCENT AUTO 75 % (41-73); Platelet Count 181 K/mm3 (150-400); RDW Coefficient Variation 14.6 % (11.7-14.2); RDW Standard Deviation 48.8 fL (35.1-46.3); Red Blood Cell Count 3.57 M/mm3 (3.80-5.20)
[2022-04-03 05:42] LABS: Bun/Creatinine Ratio 16.8 (12.0-20.0); Calcium, Blood 8.1 mg/dL (8.5-10.1); Creatinine, Blood 0.6 mg/dL (0.40-1.00); Potassium, Blood 3.2 mmol/L (3.5-5.5)
--- NOTE | 2022-04-03 10:18 | NUR ---
BEHAVIOR REPORT PT HAS BEEN YELLING WITH AGGRESSIVE AND FOUL LANGUAGE THIS AM. STATES SHE NEEDS TO "PEE" REFUSES TO USE THE BSC SO IS OFFERED A BEDPAN, PT SLAPPED THE BEDPAN AWAY FROM SURVEYOR ROD HELPER. PT ALSO REFUSES BRIEF. THIS RN WENT INTO SPEAK WITH PT AND SHE AGREED TO BEDPAN. DURRING THIS TIME SHE BEGAN TO YELL THAT SHE WANTED HER IV OUT AND DID NOT WANT TO BE HOOKED UP TO ANYTHING, SHE ALSO REFUSED MORNING MEDS. THIS RN EXPLANED TO THE PT THAT SHE IS HERE FOR CELULITIS AND WE NEEDED TO BE ABLE TO GIVE HER MEDICATIONS FOR THE INFECTION. THE PT CONTINUED TO YELL OVER THE NURSE SPEAKING, THE NURSE THEN CALMLY STATED THAT STAFF ARE HERE TO HELP BUT NOT TO BE ABUSED, THE PT THEN BEGAN TO THROW HER BELONGINGS AND STATED THAT SHE WANTED TO LEAVE TO BRING HER A PAPER TO SIGN. THE NURSE WENT TO LEAVE THE ROOM THE PT'S SON AND DAUGHTER CAME IN. PT'S FAMILY INFORMED HER THAT THEY WOULD NOT BE TAKING HER HOME SHE NEEDED TO STAY TO GET BETTER. PT CONTINUED TO USE VULGAR LANGUAGE TO YELL AT HER FAMILY. DAUGHTER STATED THEY USUALLY GIVE THE PT ATIVAN WHEN SHE ACTS THIS WAY. MD NOTIFIED AND MD ROUNDED TO PT ROOM. ZYPREXA ORDERED AND GIVEN. PT CONTINUED TO YELL TO HAVE IV LINE UNHOOKED AND STATED SHE REFUSED REST OF MED. IV LINE UNHOOKED. PT'S FAMILY ASK TO TAKE HER FOR A WALK AROUND UNIT. WHEELCHAIR OBTAINED AND FAMILY EDUCATED THAT PT NEEDED TO STAY ON THE UNIT/NOT TO LEAVE 3RD FLOOR. PT STATES SHE WANTS TO GO DOWN STAIRS TO SMOKE. EDUCATED FAMILY AND PT THAT THIS IS A SMOKE FREE CAMPUS AND THERE ARE NO SMOKING AREAS AND THAT PT IS TO REAMIN ON 3RD FLOOR. SON TOOK PT IN WHEELCHAIR WHILE DAUGHTER REMAINS IN ROOM. PT WITNESSED AT ELEVATOR YELLING AT HER SON TO TAKE HER DOWN, HE WAS STATING HE COULD NOT, PT TRYING TO PUSH SELF IN WHEELCHAIR TO ELEVATOR. ALL OF THE ABOVE REPORTED TO CHARGE NURSE.
[2022-04-03] MEDS ORDERED: PROBIOTIC1 EA13 PO (14:58)
[2022-04-03] MEDS ORDERED: LEVO750 PO (14:58)
--- NOTE | 2022-04-03 15:48 | NUR ---
DISCHARGE SUMMARY IV REMOVED PRIOR TO DISCHARGE, DISCHARGE EDUCATION REVIEWED WITH AND SIGNED BY PT. MEDS FAXED TO PHARMACY. PERSONAL BELONGINGS GATHERED AND TRANSPORTED ALONG WITH PT. PT TRANSPORTED VIA WHEELCHAIR TO [facility] WHERE SHE MET HER SON WHO IS TAKING HER HOME.
== END 2022-04-03 15:40 | disposition home or self-care (01) ==
LOC: ER 08:39 → MEDS 15:19
PROVIDERS: Emergency Medicine; Family Medicine; Orthopaedic Surgery; ADMIT Hospitalist
DX: L03.115 Cellulitis of right lower limb (principal); F15.10 Other stimulant abuse, uncomplicated; F17.210 Nicotine dependence, cigarettes, uncomplicated; Z88.6 Allergy status to analgesic agent; Z88.5 Allergy status to narcotic agent; Z88.0 Allergy status to penicillin; Z91.013 Allergy to seafood; Z88.2 Allergy status to sulfonamides; Z88.8 Allergy status to other drugs, medicaments and biological substances; Z91.048 Other nonmedicinal substance allergy status; Z20.822 Contact with and (suspected) exposure to COVID-19
CPT/HCPCS: 0241U; 36415; 73701; 80048; 80053; 81001; 83605; 85025; 87077; 87086; 87186; 93005; 93010; 93971; 96365; 96366; 96367; 99285-25; A9270; G0378; J1956; J3370; J3480; J7050; J7060; J7120; Q9967

== ENCOUNTER → 2022-04-29 | Outpatient (CLI) | payer MEDICARE, OTHER ==
[~2022-04-29] MED LIST changes: +LEVO750 PO; +PROBIOTIC1 EA13 PO
== END | disposition home or self-care (01) ==
LOC: LAB 16:28 → LAB SHORT 16:28
DX: L03.115 Cellulitis of right lower limb (principal); I87.2 Venous insufficiency (chronic) (peripheral); G62.9 Polyneuropathy, unspecified; M79.7 Fibromyalgia; D64.9 Anemia, unspecified; J45.909 Unspecified asthma, uncomplicated; G89.29 Other chronic pain
CPT/HCPCS: 83880

== ENCOUNTER → 2023-08-20 | Outpatient (CLI) | payer MEDICARE, OTHER ==
[2023-08-21 21:07] LABS: Adenovirus F 40/41 Not Detected (NOT DETECT); Astrovirus Not Detected (NOT DETECT); Campylobacter Sp Not Detected (NOT DETECT); Cryptosporidium Not Detected (NOT DETECT); Cyclospora Cayetanensis Not Detected (NOT DETECT); E. Coli O157 Not Detected (NOT DETECT); Entamoeba Histolytica Not Detected (NOT DETECT); Enteroaggregative E. coli-EAEC Detected (NOT DETECT); Enteropathogenic E. coli-EPEC Not Detected (NOT DETECT); Enterotoxigenic E. coli-ETEC Not Detected (NOT DETECT); Giardia Lamblia Not Detected (NOT DETECT); Norovirus GI/GII Not Detected (NOT DETECT); Plesiomonas Shigelloides Not Detected (NOT DETECT); Rotavirus A Not Detected (NOT DETECT); Salmonella Sp Not Detected (NOT DETECT); Sapovirus Not Detected (NOT DETECT); Shiga Toxin-prod E. coli-STEC Not Detected (NOT DETECT); Shigella/Enteroin E. coli-EIEC Not Detected (NOT DETECT); Vibrio Cholerae Not Detected (NOT DETECT); Vibrio Sp Not Detected (NOT DETECT); Yersinia Enterocolitica Not Detected (NOT DETECT)
== END | disposition home or self-care (01) ==
LOC: LAB 08:30 → LAB SHORT 08:30
PROVIDERS: Family Medicine
DX: R19.7 Diarrhea, unspecified (principal)
CPT/HCPCS: 87507

== ENCOUNTER → 2024-01-31 | Outpatient (CLI) | payer MEDICARE, OTHER ==
[2024-01-31 16:46] LABS: Adenovirus F 40/41 Not Detected (NOT DETECT); Astrovirus Not Detected (NOT DETECT); Campylobacter Sp Not Detected (NOT DETECT); Cryptosporidium Not Detected (NOT DETECT); Cyclospora Cayetanensis Not Detected (NOT DETECT); E. Coli O157 Not Detected (NOT DETECT); Entamoeba Histolytica Not Detected (NOT DETECT); Enteroaggregative E. coli-EAEC Not Detected (NOT DETECT); Enteropathogenic E. coli-EPEC Detected (NOT DETECT); Enterotoxigenic E. coli-ETEC Detected (NOT DETECT); Giardia Lamblia Not Detected (NOT DETECT); Norovirus GI/GII Not Detected (NOT DETECT); Plesiomonas Shigelloides Not Detected (NOT DETECT); Rotavirus A Not Detected (NOT DETECT); Salmonella Sp Not Detected (NOT DETECT); Sapovirus Not Detected (NOT DETECT); Shiga Toxin-prod E. coli-STEC Not Detected (NOT DETECT); Shigella/Enteroin E. coli-EIEC Not Detected (NOT DETECT); Vibrio Cholerae Not Detected (NOT DETECT); Vibrio Sp Not Detected (NOT DETECT); Yersinia Enterocolitica Not Detected (NOT DETECT)
== END | disposition home or self-care (01) ==
LOC: LAB SHORT 11:46 → LAB 11:46
PROVIDERS: Family Medicine
DX: R19.7 Diarrhea, unspecified (principal)
CPT/HCPCS: 87507

== ENCOUNTER → 2025-04-24 | Outpatient (CLI) | payer OTHER ==
[2025-04-24 16:27] LABS: BASOPHILS ABSOLUTE AUTO 0.03 K/mm3 (0.00-0.23); BASOPHILS PERCENT AUTO 1 % (0-2); EOSINOPHILS ABSOLUTE AUTO 0.07 K/mm3 (0.00-0.68); EOSINOPHILS PERCENT AUTO 2 % (0-6); Hematocrit 29.3 % (33.0-51.0); Hemoglobin 8.6 g/dL (11.5-16.0); IMMATURE GRAN ABSOLUTE AUTO 0.02 K/mm3 (0.00-0.10); IMMATURE GRAN PERCENT AUTO 1 % (0-1); LYMPHOCYTES ABSOLUTE AUTO 0.91 K/mm3 (0.84-5.20); LYMPHOCYTES PERCENT AUTO 23 % (21-46); MONOCYTES ABSOLUTE AUTO 0.74 K/mm3 (0.16-1.47); MONOCYTES PERCENT AUTO 19 % (4-13); Mean Corpuscular HGB Conc 29.4 g/dL (31.5-36.5); Mean Corpuscular Volume 83 fL (80-100); NEUTROPHILS ABSOLUTE AUTO 2.21 K/mm3 (1.96-9.15); NEUTROPHILS PERCENT AUTO 55 % (41-73); NRBC ABSOLUTE 0.00 K/mm3 (0.00-0.02); NRBC Auto 0.0 /100 WBC (0.0-0.2); Platelet Count 301 K/mm3 (150-400); RDW Coefficient Variation 21.2 % (11.7-14.2); RDW Standard Deviation 62.4 fL (35.1-46.3)
[2025-04-24 17:19] LABS: Alanine Aminotransfer (ALT/SGP 46 U/L (12-78); Albumin, Blood 3.4 g/dL (3.4-5.0); Albumin/Globulin Ratio 0.9 (0.8-1.8); Anion Gap 6 mmol/L (3-11); Aspartate Aminotrans (AST/SGOT 40 U/L (12-37); Bilirubin, Total 0.7 mg/dL (0.1-1.0); Blood Urea Nitrogen 17 mg/dL (8-24); CHOL/HDL RATIO 1.8; CO2, Blood 25 mmol/L (21-32); Calcium, Blood 8.8 mg/dL (8.5-10.1); Chloride, Blood 105 mmol/L (98-108); Cholesterol 149 mg/dL (50-200); Creatinine, Blood 0.66 mg/dL (0.40-1.00); Globulin, Blood 3.9 g/dL (2.2-4.0); Glucose, Blood 104 mg/dL (70-99); HDL Cholesterol 83 mg/dL (>39); LDL/HDL RATIO 0.6; Low Density Lipoprotein Chol 51 mg/dL (0-110); Potassium, Blood 3.5 mmol/L (3.5-5.5); Sodium, Blood 132 mmol/L (136-145); Total Protein, Blood 7.3 g/dL (6.4-8.2); Triglycerides 75 mg/dL (30-160); Very Low Density Lipoprot Chol 15 mg/dL (6-32)
== END ==
LOC: LAB SHORT 15:18 → LAB 15:18
PROVIDERS: Family Medicine
DX: Z51.81 Encounter for therapeutic drug level monitoring (principal); Z79.899 Other long term (current) drug therapy
CPT/HCPCS: 80053; 80061; 83036; 85025